=== PATIENT | female | born 1960 | race African-American/Black ===

== ENCOUNTER 2016-10-20 10:15 | Emergency (ER) | payer OTHER ==
[~2016-10-20] VITALS: Ht 157.5 cm; Wt 65.8 kg
[2016-10-20] MEDS ORDERED: Ketorolac 30mg Inj IV ONE (10:45)
[2016-10-20] MEDS ORDERED: Morphine Sulfate 4mg/ml Inj IVP ONE (10:45)
[2016-10-20] MEDS ORDERED: Tubing IV Cassette IV ONE (11:01)
[2016-10-20 11:29] LABS: BASOPHILS % (AUTO) 1.2 % (0.0-2.0); EOSINOPHILS % (AUTO) 0.4 % (0.0-3.0); LYMPHOCYTES % (AUTO) 20.3 % (20.0-45.0); MEAN CORPUSCULAR HEMOGLOBIN 30.3 PG (27.0-31.0); MEAN CORPUSCULAR HGB CONC 34.9 G/DL (32.0-36.0); MEAN CORPUSCULAR VOLUME 87 FL (80-99); MEAN PLATELET VOLUME 6.8 FL (6.5-10.1); MONOCYTES % (AUTO) 5.1 % (1.0-10.0); PLATELET COUNT 364 K/UL (150-450); RED BLOOD COUNT 5.05 M/UL (4.20-5.40); RED CELL DISTRIBUTION WIDTH 13.7 % (11.6-14.8); WHITE BLOOD COUNT 13.9 K/UL (4.8-10.8)
[2016-10-20 11:45] LABS: APPEARANCE,URINE CLEAR; KETONES,URINE NEGATIVE (NEGATIVE); LEUKOCYTE ESTERASE ,URINE NEGATIVE (NEGATIVE); NITRITE,URINE NEGATIVE (NEGATIVE); PH,URINE 6.5 (4.5-8.0); PROTEIN,URINE NEGATIVE (NEGATIVE); UROBILINOGEN,URINE NORMAL MG/DL (0.0-1.0)
[2016-10-20 11:58] LABS: BACTERIA,URINE FEW /HPF; SQUAMOUS EPITHELIAL CELL,UR FEW /LPF (NONE/OCC); WBC,URINE 0-2 /HPF (0 - 2)
[2016-10-20 12:00] VITALS: BP 162/82
[2016-10-20 12:30] LABS: ALANINE AMINOTRANSFERASE 8 U/L (3-33); ALBUMIN/GLOBULIN RATIO 1.3 (1.0-2.7); ANION GAP 15 (5-15); ASPARTATE AMINO TRANSFERASE 14 U/L (5-40); CARBON DIOXIDE 24 mEQ/L (20-30); CHLORIDE 102 mEQ/L (98-107); CREATININE 0.8 mg/dL (0.5-0.9); GLOMERULAR FILTRATION RATE > 60 mL/min (>60); HEMOLYSIS 12; LIPASE 20 U/L (< 60); POTASSIUM 3.5 mEQ/L (3.4-4.9); SODIUM 141 mEQ/L (135-145); TOTAL PROTEIN 6.7 g/dL (6.6-8.7); TROPONIN I < 0.30 ng/mL (<=0.30)
--- NOTE | 2016-10-20 13:20 | Diagnostic Imaging Report ---
Indication: Abdominal pain Technique: Continuous helical transaxial imaging of the abdomen and pelvis was obtained from the lung bases to the pubic symphysis during intravenous contrast administration. Coronal 2-D reformats were also obtained. Study obtained in a Siemens sensation [address] Total Dose length Product (DLP): [address] Dose Index Volume (CTDIvol): 18 mGy Comparison: None Findings: There is mild posterior basilar atelectasis left worse than right. Cholecystectomy is noted. No abnormalities of the spleen identified. There is a 8mm hypervascular focus in the lateral segment of the left lobe nonspecific. This is obvious incidental and could be a small vascular malformation or hypervascular lesion. Bilateral extrarenal pelvis noted. Arterial vascular calcifications are present. No free fluid or free air identified within the abdomen or pelvis. Suggestion of a right-sided uterine fibroid measuring approximately 4-5 cm. Urinary bladder is unremarkable. The appendix is not densely seen but there are no secondary signs of appendicitis. There is a tiny cyst in the left kidney. Impression: No acute findings appreciated. No evidence of appendicitis. Suspected uterine fibroid Posterior basilar atelectasis Incidental 8 mm hypervascular liver focus. This may be a small vascular malformation. Suggest correlation with ultrasound as an outpatient. Status post cholecystectomy. Tiny left renal cyst suspected. The CT scanner at [facility] is accredited by the [employer] and the scans are performed using dose optimization techniques as appropriate to a performed exam including Automatic Exposure control.
[2016-10-20] MEDS ORDERED: HYDROmorphone 1 MG, DiphenhydrAMINE 25 MG in NS 55 ML IVPB ONE (13:45)
[2016-10-20] MEDS ORDERED: HYDROmorphone 1mg/ml Carpuject ONE (13:59)
[2016-10-20 14:00] VITALS: BP_SYST 127; BP_SYST 142; BP_DIAS 85; BP_DIAS 90
[2016-10-20] MEDS ORDERED: NS 55 ML IV ONE (14:00)
[2016-10-20] MEDS ORDERED: DiphenhydrAMINE 50mg/ml Inj ONE (14:00)
--- NOTE | 2016-10-20 15:27 | Emergency Room Report ---
History of Present Illness General Chief Complaint: General Complaint Source: Patient Present Illness HPI 56-year-old female presents to ED complaining of total body pain x3 days. Notes pain in her chest, back, abdomen or legs. Pain is a 10 out of 10, dull, nonradiating. No other aggravating relieving factors. Denies shortness of breath. Denies fevers or chills. Nausea or vomiting. Patient states she feels very weak. Has no appetite. Patient states she was seen at [facility] last week for the same thing and was discharged. Patient states she is getting worse. Patient states she has "polyps" in her colon that she needs to have removed periodically. States she is passing gas. Having bowel movements. No other aggravating or relieving factors. Denies any other associated symptoms Allergies: Coded Allergies: No Known Allergies (Unverified , 10/20/16) Patient History Past Medical History: HTN, psych hx Past Surgical History: none Pertinent Family History: none Social History: Denies: alcohol use, drug use, smoking Now: No Immunizations: UTD Reviewed Nursing Documentation: PMH: Agreed, PSxH: Agreed Nursing Documentation-PMH Hx Cardiac Problems: No Hx Hypertension: Yes Hx Pacemaker: No Hx Asthma: No Hx Diabetes: No Hx Cancer: No Hx Gastrointestinal Problems: No Hx Dialysis: No History Of Psychiatric Problem: Yes - depression Hx Neurological Problems: No Hx Cerebrovascular Accident: No Hx Seizures: No Review of Systems All Other Systems: negative except mentioned in HPI Physical Exam Vital Signs Date Time Temp Pulse Resp B/P Pulse Ox O2 Delivery O2 Flow Rate FiO2 10/20/16 10:02 97.7 78 18 148/94 97 Room Air Sp02 EP Interpretation: reviewed, normal General Appearance: no apparent distress, alert, GCS 15, non-toxic Head: normocephalic, atraumatic Eyes: bilateral eye PERRL, bilateral eye normal inspection ENT: hearing grossly normal, normal pharynx, no angioedema, normal voice Neck: full range of motion, supple/symm/no masses Respiratory: chest non-tender, lungs clear, normal breath sounds, speaking full sentences Cardiovascular #1: regular rate, rhythm, no edema Cardiovascular #2: 2+ carotid (R), 2+ carotid (L), 2+ radial (R), 2+ radial (L) , 2+ dorsalis pedis (R), 2+ dorsalis pedis (L) Gastrointestinal: normal bowel sounds, non tender, soft, non-distended, no guarding, no rebound Rectal: deferred Genitourinary: normal inspection, no CVA tenderness Musculoskeletal: back normal, gait/station normal, normal range of motion, non- tender Neurologic: alert, oriented x3, responsive, motor strength/tone normal, sensory intact, speech normal Psychiatric: judgement/insight normal, memory normal, mood/affect normal, no suicidal/homicidal ideation Reflexes: 3+ bicep (R), 3+ bicep (L), 3+ tricep (R), 3+ tricep (L), 3+ knee (R) , 3+ knee (L) Skin: normal color, no rash, warm/dry, well hydrated Lymphatic: no adenopathy Medical Decision Making Diagnostic Impression: Primary Impression: Weakness Additional Impression: Opioid dependence Qualified Codes: F11.29 - Opioid dependence with unspecified opioid-induced disorder ER Course Hospital Course 56-year-old female presents to ED with generalized body pain, weakness Differential diagnoses include: dehydration, SBO, failure to thrive Clinical course 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 After initial history and physical I ordered labs, IV fluids, UA, pain medication and CT scan Labs - noted leukocytosis, Hb/Hct stable. electrolytes ok CT abdomen and pelvis - no acute process On reassessment patient requires more pain medication. States she feels too weak to go home. Because of insurance patient will be transferred. Records from prior admissions document extensive opioid dependence I feel this is a highly complex case requiring extensive working including EKG/ Rhythm strip, Xray/CT/US, Blood/urine lab work, repeat exams while in ED, and administration of strong opiates/narcotics for pain control, admission to hospital or close patient follow up. Diagnosis - weakness, opioid dependence Transferred in serious condition Labs Test 10/20/16 10:45 10/20/16 10:50 10/20/16 12:10 Urine Color Pale yellow Urine Appearance Clear Urine pH 6.5 (4.5-8.0) Urine Specific [place] 1.005 (1.005-1.035) Urine Protein Negative (NEGATIVE) Urine Glucose (UA) Negative (NEGATIVE) Urine Ketones Negative (NEGATIVE) Urine Occult Blood 2+ (NEGATIVE) Urine Nitrite Negative (NEGATIVE) Urine Bilirubin Negative (NEGATIVE) Urine Urobilinogen Normal MG/DL (0.0-1.0) Urine Leukocyte Esterase Negative (NEGATIVE) Urine RBC 2-4 /HPF (0 - 2) Urine WBC 0-2 /HPF (0 - 2) Urine Squamous Epithelial Cells Few /LPF (NONE/OCC) Urine Bacteria Few /HPF (NONE) White Blood Count 13.9 K/UL (4.8-10.8) Red Blood Count 5.05 M/UL (4.20-5.40) Hemoglobin 15.3 G/DL (12.0-16.0) Hematocrit 43.8 % (37.0-47.0) Mean Corpuscular Volume 87 FL (80-99) Mean Corpuscular Hemoglobin 30.3 PG (27.0-31.0) Mean Corpuscular Hemoglobin Concent 34.9 G/DL (32.0-36.0) Red Cell Distribution Width 13.7 % (11.6-14.8) Platelet Count 364 K/UL (150-450) Mean Platelet Volume 6.8 FL (6.5-10.1) Neutrophils (%) (Auto) 73.0 % (45.0-75.0) Lymphocytes (%) (Auto) 20.3 % (20.0-45.0) Monocytes (%) (Auto) 5.1 % (1.0-10.0) Eosinophils (%) (Auto) 0.4 % (0.0-3.0) Basophils (%) (Auto) 1.2 % (0.0-2.0) Sodium Level 141 mEQ/L (135-145) Potassium Level 3.5 mEQ/L (3.4-4.9) Chloride Level 102 mEQ/L (98-107) Carbon Dioxide Level 24 mEQ/L (20-30) Anion Gap 15 (5-15) Blood Urea Nitrogen 6 mg/dL (7-23) Creatinine 0.8 mg/dL (0.5-0.9) Estimat Glomerular Filtration Rate > 60 mL/min (>60) Glucose Level 88 mg/dL (74-106) Calcium Level 9.0 mg/dL (8.6-10.2) Total Bilirubin 0.4 mg/dL (0.0-1.2) Aspartate Amino Transf (AST/SGOT) 14 U/L (5-40) Alanine Aminotransferase (ALT/SGPT) 8 U/L (3-33) Alkaline Phosphatase 97 U/L (35-104) Troponin I < 0.30 ng/mL (<=0.30) Total Protein 6.7 g/dL (6.6-8.7) Albumin 3.9 g/dL (3.5-5.2) Globulin 2.8 g/dL Albumin/Globulin Ratio 1.3 (1.0-2.7) Lipase 20 U/L (< 60) CT/MRI/US Diagnostic Results CT/MRI/US Diagnostic Results : Imaging Test Ordered: CT A/P Impression no acute process Last Vital Signs Date Time Temp Pulse Resp B/P Pulse Ox O2 Delivery O2 Flow Rate FiO2 10/20/16 14:00 73 16 142/90 95 Room Air 10/20/16 11:35 97.7 Status: improved Disposition: XFER SHT-TRM HOSP Condition: Serious Referrals: [facility],REFERRING (PCP) AG CARY M.D. Oct 20, 2016 15:27
[2016-10-20 16:00] VITALS: BP 151/69
[2016-10-20 16:44] VITALS: BP 151/69
[2016-10-20] MEDS ORDERED: AMLODIPINE BESY10 MG ORAL (16:58)
[2016-10-20] MEDS ORDERED: TRAZODONE HCL150 MG ORAL (16:58)
== END 2016-10-20 17:07 | disposition short-term general hospital (02) ==
LOC: EDBD 10:15 → EMR 10:42
DX: R53.1 Weakness (principal); F11.29 Opioid dependence with unspecified opioid-induced disorder; I10 Essential (primary) hypertension; Z86.010 Personal history of colon polyps; D72.829 Elevated white blood cell count, unspecified
CPT/HCPCS: 36415; 74177; 80053; 81003; 83690; 84484; 85025; 93005; 96360; 96374; 96375; 99285; J1170; J1200; J1885; J2270; J2405; Q9967

== ENCOUNTER 2017-12-31 12:07 | Inpatient (IN) | payer OTHER ==
[~2017-12-31] VITALS: Ht 160 cm; Wt 68.0 kg
[~2017-12-31 12:07] MED LIST: AMLODIPINE BESY10 MG ORAL; TRAZODONE HCL150 MG ORAL
[2017-12-31 12:19] VITALS: BP 135/81
[2017-12-31] MEDS ORDERED: ZOFRAN4 MG ORAL (13:40)
--- NOTE | 2017-12-31 13:40 | Emergency Room Report ---
History of Present Illness General Chief Complaint: Generalized Weakness Source: EMS Present Illness HPI This patient c/o feeling weak and nausea and poor appetite. States she has not eaten for four days b/c of these problems. Pt. had cervical spine fusion surgery September 2017. She takes [place] occasionally when neck/back pain most severe. No vomiting, no fever. No abd pain. Denies dysuria. 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 Allergies: Coded Allergies: No Known Allergies (Unverified , 10/20/16) Patient History Last Menstrual Period: N/A Nursing Documentation-PMH Past Medical History: No History, Except For Hx Cardiac Problems: Yes - IRREGULAR HEARTBEAT Hx Hypertension: Yes Hx Pacemaker: No Hx Asthma: No Hx COPD: Yes Hx Diabetes: No Hx Cancer: No Hx Gastrointestinal Problems: No Hx Dialysis: No History Of Psychiatric Problem: Yes - BIPOLAR, DEPRESSION Hx Neurological Problems: No Hx Cerebrovascular Accident: No Hx Seizures: No Review of Systems Constitutional: Reports: no symptoms, malaise, weakness Eye: Reports: no symptoms ENT: Reports: no symptoms Respiratory: Reports: no symptoms Cardiovascular: Reports: no symptoms Gastrointestinal: Reports: no symptoms, nausea Genitourinary: Reports: no symptoms Musculoskeletal: Reports: no symptoms Skin: Reports: no symptoms Psychiatric: Reports: no symptoms Neurological: Reports: no symptoms Endocrine: Reports: no symptoms Hematologic/Lymphatic: Reports: no symptoms Allergic: Reports: no symptoms Physical Exam Vital Signs Date Time Temp Pulse Resp B/P (MAP) Pulse Ox O2 Delivery O2 Flow Rate FiO2 12/31/17 12:09 98.7 75 20 149/93 98 Room Air 98.8 Sp02 EP Interpretation: reviewed, normal General Appearance: normal inspection, well appearing, no apparent distress, alert, GCS 15, non-toxic Head: normocephalic, atraumatic Eyes: bilateral eye normal inspection, bilateral eye PERRL, bilateral eye EOMI ENT: hearing grossly normal, normal pharynx, no angioedema, normal voice, dry mucus membranes Neck: other - soft collar Respiratory: normal inspection, lungs clear, normal breath sounds, no rhonchi, no respiratory distress, no retraction, no accessory muscle use, no wheezing Cardiovascular #1: normal inspection, regular rate, rhythm, no edema Gastrointestinal: normal inspection, normal bowel sounds, non tender, soft, no mass, non-distended Musculoskeletal: gait/station normal, normal range of motion Neurologic: normal inspection, alert, oriented x3, responsive, motor strength/ tone normal Psychiatric: normal inspection, judgement/insight normal, memory normal Suicide Risk Assessment: Suicidal Ideation: No Had intent to initiate attempt: No Pt's plan for suicide attempt: No Has means to complete attempt: No Skin: normal inspection, normal color, no rash, warm/dry Medical Decision Making Diagnostic Impression: Primary Impression: Nausea Additional Impressions: Episode of generalized weakness Dehydration UTI (urinary tract infection) ER Course This patient is fairly reliable. She is so uncomfortable she is not eating/ drinking. She also has a mild UTI on UA. Agree admit for IV fluids, pain, nausea control. PMD will check labs that are still pending. Rhythm Strip Diag. Results Rhythm Strip Time: 14:49 EP Interpretation: yes Rhythm: NSR Last Vital Signs Date Time Temp Pulse Resp B/P (MAP) Pulse Ox O2 Delivery O2 Flow Rate FiO2 12/31/17 12:19 98.4 72 15 135/81 99 Room Air 98.4 Disposition: ADMITTED INPATIENT Condition: Stable Scripts Ondansetron (Zofran) 4 Mg Tablet 4 MG ORAL Q6H PRN for Nausea & Vomiting, #30 TAB 0 Refills Prov: Sandro Faustin M.D. 12/31/17 Referrals: NOT CHOSEN [facility]/,REFERRING (PCP) Patient Instructions: Nausea and Vomiting, Adult, [id number] Sandro Faustin M.D. Dec 31, 2017 13:40
[2017-12-31 13:48] LABS: BASOPHILS % (AUTO) 0.5 % (0.0-2.0); EOSINOPHILS % (AUTO) 0.3 % (0.0-3.0); HEMATOCRIT 35.2 % (37.0-47.0); HEMOGLOBIN 11.9 G/DL (12.0-16.0); LYMPHOCYTES % (AUTO) 23.8 % (20.0-45.0); MEAN CORPUSCULAR VOLUME 86 FL (80-99); MONOCYTES % (AUTO) 4.4 % (1.0-10.0); NEUTROPHILS % (AUTO) 71.1 % (45.0-75.0); PLATELET COUNT 216 K/UL (150-450); RED BLOOD COUNT 4.11 M/UL (4.20-5.40); WHITE BLOOD COUNT 8.9 K/UL (4.8-10.8)
[2017-12-31 14:08] LABS: APPEARANCE,URINE CLEAR; BILIRUBIN, URINE NEGATIVE (NEGATIVE); GLUCOSE, URINE (UA) NEGATIVE (NEGATIVE); KETONES,URINE 3+ (NEGATIVE); LEUKOCYTE ESTERASE ,URINE 1+ (NEGATIVE); NITRITE,URINE NEGATIVE (NEGATIVE); PH,URINE 6 (4.5-8.0); PROTEIN,URINE 2+ (NEGATIVE); UROBILINOGEN,URINE NORMAL MG/DL (0.0-1.0)
[2017-12-31 14:21] LABS: COLOR,URINE YELLOW
[2017-12-31 14:43] LABS: ANION GAP 9 mmol/L (5-15); BLOOD UREA NITROGEN 9 mg/dL (7-18); CALCIUM 9.3 MG/DL (8.5-10.1); CARBON DIOXIDE 27 MMOL/L (21-32); CHLORIDE 101 MMOL/L (98-107); CREATININE 0.8 MG/DL (0.55-1.30); POTASSIUM 3.9 MMOL/L (3.5-5.1); SODIUM 137 MMOL/L (136-145)
[2017-12-31 14:46] VITALS: BP 137/80
[2017-12-31 14:48] LABS: ALANINE AMINOTRANSFERASE 23 U/L (12-78); ALBUMIN/GLOBULIN RATIO 1.2 (1.0-2.7); ALKALINE PHOSPHATASE 99 U/L (46-116); ASPARTATE AMINO TRANSFERASE 24 U/L (15-37); BILIRUBIN,TOTAL 0.6 MG/DL (0.2-1.0)
[2017-12-31] MEDS ORDERED: Morphine Sulfate 2mg/ml Inj(IV/IM USE ONLY) IVP ONE (15:00)
[2017-12-31] MEDS ORDERED: Ketorolac 30mg Inj IV ONE (15:00)
[2017-12-31] MEDS ORDERED: cefTRIAXone 1 GM in NS 55 ML IVPB ONE (15:45)
[2017-12-31 16:33] VITALS: BP 133/73
[2017-12-31] MEDS ORDERED: BENADRYL25 MG ORAL (17:43)
[2017-12-31] MEDS ORDERED: BUPROPION XL150 MG ORAL (17:43)
[2017-12-31] MEDS ORDERED: SEROQUEL100 MG ORAL (17:43)
[2017-12-31] MEDS ORDERED: Morphine Sulfate 4mg/ml Inj (IV USE ONLY) IVP ONE (17:45)
[2017-12-31 18:51] VITALS: BP 154/76
[2017-12-31 19:30] VITALS: BP 131/87
[2017-12-31 21:33] VITALS: BP_SYST 131; BP_SYST 140; BP_DIAS 74; BP_DIAS 87
[2017-12-31] MEDS ORDERED: Morphine Sulfate 4mg/ml Inj (IV USE ONLY) ONE (21:57)
[2017-12-31] MEDS ORDERED: Morphine Sulfate 4mg/ml Inj (IV USE ONLY) IVP STA (21:59)
[2017-12-31] MEDS ORDERED: Morphine Sulfate 4mg/ml Inj (IV USE ONLY) IVP PRN ×2 (22:15→23:30)
[2017-12-31] MEDS ORDERED: BuPROPion XL 150mg tab ORAL SCH (23:30)
[2017-12-31] MEDS ORDERED: Acetaminophen 500mg (ES) tab ORAL PRN (23:45)
[2018-01-01] VITALS: BP 142/76
[2018-01-01] MEDS: Morphine Sulfate 4mg/ml Inj (IV USE ONLY) IVP PRN ×5 (01:48→19:58)
[2018-01-01] MEDS ORDERED: Morphine Sulfate 4mg/ml Inj (IV USE ONLY) IVP PRN (03:30)
[2018-01-01] MEDS ORDERED: TraZODone 100mg tab ORAL ONE (03:30)
[2018-01-01 04:00] VITALS: BP 141/80
[2018-01-01 07:22] VITALS: BP 117/76
[2018-01-01] MEDS: BuPROPion XL 150mg tab ORAL SCH (08:33)
--- NOTE | 2018-01-01 10:05 | Diagnostic Imaging Report ---
Indication: Neck pain Technique: 3 views of the cervical spine Comparison: none Findings: Exam is somewhat limited as patient was unable to tolerate elevating arms for swimmer's view. The lower cervical spine and cervicothoracic junction are not well demonstrated. There is slight reversal of the normal cervical lordosis. Anterior fusion hardware is seen bridging C4-5 and C6-7, with disc spacers at all of the intervening discs. No definite acute fractures. No dislocations. No prevertebral soft tissue swelling. Impression: Very limited exam. No gross acute bony trauma
--- NOTE | 2018-01-01 10:22 | Consultation ---
History of Present Illness General Date patient seen: Jan 01, 2018 Present Illness Allergies: Coded Allergies: No Known Allergies (Unverified , 10/20/16) Medication History Scheduled Amlodipine Besylate* (Amlodipine Besylate*), 10 MG ORAL DAILY, (Reported) Bupropion Xl* (Bupropion Xl*), 150 MG ORAL Q24H, (Reported) Quetiapine Fumarate* (Seroquel*), 100 MG ORAL TWICE A DAY, (Reported) Trazodone* (Trazodone*), 100 MG ORAL BEDTIME, (Reported) Scheduled PRN Diphenhydramine Hcl* (Benadryl*), 25 MG ORAL Q6H PRN for Itching, (Reported) Discontinued Medications Ondansetron (Zofran), 4 MG ORAL Q6H PRN for Nausea & Vomiting Discontinued Reason: Pt stopped taking med Patient History Healthcare decision maker N Resuscitation status Advanced Directive on File Physical Exam Last 24 Hour Vital Signs Date Time Temp Pulse Resp B/P (MAP) Pulse Ox O2 Delivery O2 Flow Rate FiO2 01/01/18 08:59 Room Air 01/01/18 08:34 78 117/76 01/01/18 07:22 98.1 78 18 117/76 (90) 97 98.1 01/01/18 04:00 98.0 68 18 141/80 (100) 99 98.0 01/01/18 00:00 98.2 56 20 142/76 (98) 98 98.2 12/31/17 23:23 Room Air 12/31/17 22:45 98.7 51 18 140/74 100 Room Air 209.7 12/31/17 22:01 98.7 12/31/17 21:33 98.7 51 18 140/74 100 Room Air 98.7 12/31/17 19:30 98.7 67 18 131/87 100 Room Air 98.7 12/31/17 18:51 98.7 52 17 154/76 100 Room Air 98.7 12/31/17 17:39 98.8 12/31/17 16:33 98.8 55 22 133/73 100 Room Air 98.8 12/31/17 15:33 98.8 12/31/17 15:28 98.8 12/31/17 15:03 98.6 8/16/18 14:46 98.6 71 21 137/80 100 Room Air 98.6 12/31/17 12:19 98.4 72 15 135/81 99 Room Air 98.4 12/31/17 12:09 98.7 75 20 149/93 98 Room Air 98.8 Intake and Output 12/31/17 01/01/18 19:00 07:00 Intake Total 120 ml Output Total 0 ml Balance 0 ml 120 ml Intake Oral 120 ml Output Urine Total 0 ml # Voids 3 Laboratory Tests Test 12/31/17 13:30 12/31/17 13:49 White Blood Count 8.9 K/UL (4.8-10.8) Red Blood Count 4.11 M/UL (4.20-5.40) L Hemoglobin 11.9 G/DL (12.0-16.0) L Hematocrit 35.2 % (37.0-47.0) L Mean Corpuscular Volume 86 FL (80-99) Mean Corpuscular Hemoglobin 28.9 PG (27.0-31.0) Mean Corpuscular Hemoglobin Concent 33.8 G/DL (32.0-36.0) Red Cell Distribution Width 13.0 % (11.6-14.8) Platelet Count 216 K/UL (150-450) Mean Platelet Volume 6.3 FL (6.5-10.1) L Neutrophils (%) (Auto) 71.1 % (45.0-75.0) Lymphocytes (%) (Auto) 23.8 % (20.0-45.0) Monocytes (%) (Auto) 4.4 % (1.0-10.0) Eosinophils (%) (Auto) 0.3 % (0.0-3.0) Basophils (%) (Auto) 0.5 % (0.0-2.0) Sodium Level 137 MMOL/L (136-145) Potassium Level 3.9 MMOL/L (3.5-5.1) Chloride Level 101 MMOL/L (98-107) Carbon Dioxide Level 27 MMOL/L (21-32) Anion Gap 9 mmol/L (5-15) Blood Urea Nitrogen 9 mg/dL (7-18) Creatinine 0.8 MG/DL (0.55-1.30) Estimat Glomerular Filtration Rate > 60 mL/min (>60) Glucose Level 106 MG/DL (74-106) Calcium Level 9.3 MG/DL (8.5-10.1) Total Bilirubin 0.6 MG/DL (0.2-1.0) Aspartate Amino Transf (AST/SGOT) 24 U/L (15-37) Alanine Aminotransferase (ALT/SGPT) 23 U/L (12-78) Alkaline Phosphatase 99 U/L (46-116) Total Protein 7.3 G/DL (6.4-8.2) Albumin 4.0 G/DL (3.4-5.0) Globulin 3.3 g/dL Albumin/Globulin Ratio 1.2 (1.0-2.7) Lipase 70 U/L (73-393) L Urine Color Yellow Urine Appearance Clear Urine pH 6 (4.5-8.0) Urine Specific [place] 1.020 (1.005-1.035) Urine Protein 2+ (NEGATIVE) H Urine Glucose (UA) Negative (NEGATIVE) Urine Ketones 3+ (NEGATIVE) H Urine Occult Blood 3+ (NEGATIVE) H Urine Nitrite Negative (NEGATIVE) Urine Bilirubin Negative (NEGATIVE) Urine Urobilinogen Normal MG/DL (0.0-1.0) Urine Leukocyte Esterase 1+ (NEGATIVE) H Urine RBC 5-10 /HPF (0 - 2) H Urine WBC 5-10 /HPF (0 - 2) H Urine Squamous Epithelial Cells Few /LPF (NONE/OCC) Urine Bacteria Few /HPF (NONE) Urine Mucus Few /LPF (NONE/OCC) H Urine Opiates Screen Positive (NEGATIVE) H Urine Barbiturates Screen Negative (NEGATIVE) Phencyclidine (PCP) Screen Negative (NEGATIVE) Urine Amphetamines Screen Negative (NEGATIVE) Urine Benzodiazepines Screen Positive (NEGATIVE) H Urine Cocaine Screen Negative (NEGATIVE) Urine Marijuana (THC) Screen Negative (NEGATIVE) Height (Feet): 5 Height (Inches): 3.00 Weight (Pounds): 150 Medications Current Medications Medications (Trade) Dose Ordered Sig/Zaina Route PRN Reason Start Time Stop Time Status Last Admin Dose Admin Acetaminophen (Tylenol) 500 mg Q4H PRN ORAL Mild Pain/Temp > 100.5 12/31/17 23:45 01/30/18 23:44 Amlodipine Besylate (Norvasc) 10 mg DAILY ORAL 01/01/18 09:00 01/31/18 08:59 Bupropion HCl (Wellbutrin XL) 150 mg Q24H ORAL 01/01/18 09:00 01/30/18 23:29 01/01/18 08:33 Diphenhydramine HCl (Benadryl) 25 mg Q4H PRN ORAL Itching 12/31/17 23:30 01/30/18 23:29 01/01/18 00:16 Morphine Sulfate (Morphine Sulfate) 4 mg Q4H PRN IVP Severe Pain (Pain Scale 7-10) 01/01/18 01:00 01/07/18 23:29 01/01/18 06:59 Ondansetron HCl (Zofran) 4 mg Q6H PRN IVP Nausea & Vomiting 12/31/17 23:30 01/30/18 23:29 12/31/17 23:59 Quetiapine Fumarate (SEROquel) 50 mg TWICE A DAY ORAL 01/01/18 09:00 01/31/18 08:59 Trazodone HCl (Desyrel) 100 mg BEDTIME ORAL 01/01/18 21:00 01/31/18 20:59 Assessment/Plan Assessment/Plan (1) Cervical DDD (2) Cervical Spondylosis (3) Cervical Herniated disc (4) Cervical Radiculopathy (5) S/P Cervical Fusion seen dictated Jose M Bucio Jan 01, 2018 10:22
[2018-01-01 10:53] LABS: BASOPHILS % (AUTO) 1.1 % (0.0-2.0); EOSINOPHILS % (AUTO) 1.9 % (0.0-3.0); HEMATOCRIT 38.9 % (37.0-47.0); HEMOGLOBIN 13.3 G/DL (12.0-16.0); LYMPHOCYTES % (AUTO) 35.2 % (20.0-45.0); MEAN CORPUSCULAR VOLUME 86 FL (80-99); MONOCYTES % (AUTO) 6.8 % (1.0-10.0); NEUTROPHILS % (AUTO) 55.1 % (45.0-75.0); PLATELET COUNT 258 K/UL (150-450); RED BLOOD COUNT 4.52 M/UL (4.20-5.40); RED CELL DISTRIBUTION WIDTH 13.5 % (11.6-14.8); WHITE BLOOD COUNT 10.5 K/UL (4.8-10.8)
[2018-01-01 11:19] LABS: ALANINE AMINOTRANSFERASE 17 U/L (12-78); ALBUMIN 3.1 G/DL (3.4-5.0); ALKALINE PHOSPHATASE 101 U/L (46-116); ANION GAP 6 mmol/L (5-15); ASPARTATE AMINO TRANSFERASE 15 U/L (15-37); BILIRUBIN,TOTAL 0.3 MG/DL (0.2-1.0); BLOOD UREA NITROGEN 17 mg/dL (7-18); CALCIUM 8.7 MG/DL (8.5-10.1); CARBON DIOXIDE 31 MMOL/L (21-32); CHLORIDE 106 MMOL/L (98-107); CREATININE 1.2 MG/DL (0.55-1.30); POTASSIUM 3.8 MMOL/L (3.5-5.1); SODIUM 143 MMOL/L (136-145)
[2018-01-01 11:33] VITALS: BP 107/71
[2018-01-01] MEDS ORDERED: Methocarbamol 500mg tab ORAL PRN (12:00)
[2018-01-01 16:00] VITALS: BP 99/48
[2018-01-01 20:00] VITALS: BP 110/53
--- NOTE | 2018-01-01 20:00 | History and Physical Report ---
DATE OF ADMISSION: 12/31/2017 HISTORY OF PRESENT ILLNESS: The patient admitted for intractable pain, dehydration, urinary tract infection. The patient has a soft collar on the neck, has recent surgery on her neck for what she describes as left hand lock up. She says that the left hand lock up improved after her neck surgery. The patient had multiple neck surgeries and she also says that yesterday she had a syncopal episode while walking and remembers what happened up to passing out but after the passing out she does not remember how long she was out. She has chronic neck and back pain syndrome which is chronic. Denies headache. Denies shortness of breath. Denies cough. Denies fever or chills. The patient states she has been not eating for four days and also had a chest wall tenderness which made worse by deep inspiration. PAST MEDICAL HISTORY: Significant for hypertension, anxiety, psychosis, mood disorder, chronic pain syndrome, history of the left hand locking up/paresis, history of arrhythmia. The patient also has history of hypertension as well and history of polyps as well. The patient also has history of dislocated lumbar in the past, it is not acute. PAST SURGICAL HISTORY: Polypectomy, right arm surgery, cholecystectomy, multiple neck surgeries. The patient also has history of right lower extremity surgery, history of x2, tumor removed from right shoulder as well. FAMILY HISTORY: Noncontributory. SOCIAL HISTORY: History of drug abuse, history of smoking. Very remote history of alcohol abuse. REVIEW OF SYSTEMS: HEENT: Denies headaches. RESPIRATORY: Denies shortness of breath. Denies cough. CARDIOVASCULAR: Denies chest pain. Denies orthopnea. GASTROINTESTINAL: Denies nausea, vomiting, or diarrhea. Does have occasional heartburn. EXTREMITIES: She has generalized pain, which is chronic including neck pain. CENTRAL NERVOUS SYSTEM: Denies change in vision or speech pattern. Had syncopal episode yesterday. No diplopia. PHYSICAL EXAMINATION: VITAL SIGNS: Temperature is 98.2, pulse 56, blood pressure is 142/72. HEENT: PERRLA. The patient is wearing soft collar and neck collar. CHEST: Clear to auscultation. CARDIOVASCULAR: Regular. Does have murmur. GASTROINTESTINAL: Soft and nontender. Positive bowel sounds. No organomegaly. EXTREMITIES: No edema. There is generalized weakness. Wearing soft neck collar. Reflexes equal on both sides. LABORATORY DATA: WBC of 8.9, hemoglobin 11.9, platelet basically 216. Sodium 137, potassium 3.9, chloride 101, BUN of 9, creatinine 0.8. AST of 24, ALT of 23, alkaline phosphatase of 99. Lipase of 70. ASSESSMENT AND PLAN: The patient does seem to have urinary tract infection 1. Urinary tract infection. 2. Intractable neck pain. 3. psychosis. I have asked Dr. Karolina Dr. , Dr. Landaverde, Dr. Cordoba to see the patient for the pain management as well as for the treatment of urinary tract infection as well as for her psychosis and depression as well as for abdominal pain management. The patient does complain of some abdominal pain as well. Sheyla Lawrence M.D. DR: Alejandra JOB#: [id number] CC:
--- NOTE | 2018-01-01 20:15 | Consultation ---
DATE OF CONSULTATION: 01/01/2018 PAIN MANAGEMENT CONSULTATION CONSULTING PHYSICIAN: Etta Landaverde M.D. REFERRING PHYSICIAN: Sheyla Lawrence M.D. PHYSICIAN OBSTETRICS AND GYNECOLOGY PROFESSOR: Valeria Luis CHIEF COMPLAINT: Neck pain. HISTORY OF PRESENT ILLNESS: The patient is a 57-year-old female who is being seen on the Medical/Surgical floor of [facility] for comprehensive pain management consultation. The patient was admitted under the care of Dr. Lawrence due to complaints of increased weakness, complaining of neck pain, which had a surgery of cervical spine fusion on September of [address] Owens at [facility]. She was having increased weakness, poor appetite, and some nausea, and was admitted to the hospital under the care of Dr. Lawrence, who started her on morphine 4 mg IV every 4 hours as needed for severe pain, which has been helping to relieve her pain. We were consulted so that the patient would have adequate pain control while here in the hospital. PAST MEDICAL HISTORY: Hypertension and bipolar disorder. PAST SURGICAL HISTORY: Cervical fusion. ALLERGIES: No known drug allergies. MEDICATIONS: Amlodipine, , Seroquel, trazodone, Benadryl, Zofran, and [place]. SOCIAL HISTORY: Denies smoking tobacco, drinking alcohol, and IV drug abuse. REVIEW OF SYSTEMS: Denies rash, fever, chills, sweating, dizziness, drowsiness, blurred vision, sore throat, or change in weight. No shortness of breath or chest pain. No nausea, vomiting, diarrhea, or blood in the stool or urine. No bowel or bladder incontinence. No dysuria. She is complaining of neck pain. PHYSICAL EXAMINATION: GENERAL: Alert, awake, and oriented x3. VITAL SIGNS: Blood pressure 117/76, heart rate 78, oxygen saturation 97%, respiratory rate is 18, and temperature 98.1 degrees Fahrenheit. HEENT: PERRLA. NECK: Range of motion is decreased due to the patient's condition with tenderness to paracervical muscles. No adenopathy. LUNGS: Decreased breath sounds bilaterally. HEART: Regular. ABDOMEN: Benign. BACK: Range of motion is decreased in flexion and extension. EXTREMITIES: Upper extremity range of motion is decreased due to the patient's pain and condition. No cyanosis. No clubbing. No edema. Joint contractures noted in the right upper extremity. Sensory is reduced. Reflexes are not obtainable. No adenopathy. Lower extremity range of motion is decreased due to the patient's pain and condition. No cyanosis. No clubbing. Sensory is intact. Reflexes are not obtainable. No adenopathy. ASSESSMENT AND PLAN: This is a 57-year-old female with cervical degenerative disk disease, cervical spondylosis, cervical herniated disc, cervical radiculopathy, status post cervical fusion. The patient will be continued on morphine 4 mg IV every 4 hours as needed for severe pain, started on Tylenol No. 3 one tablet every 4 hours as needed for moderate pain, Neurontin 300 mg capsule three times a day with Robaxin 500 mg tablet every 8 hours as needed for muscle spasm. The patient was discussed with Dr. Landaverde and Dr. Landaverde concurred. We will follow the patient. Thank you very much for the courtesy of this consultation. Etta Landaverde M.D. EMILIANA Luis DR: Norah JOB#: [id number] CC:
[2018-01-01] MEDS: TraZODone 100mg tab ORAL SCH (20:59)
--- NOTE | 2018-01-01 23:59 | Consultation ---
History of Present Illness General Date patient seen: Jan 01, 2018 Chief Complaint: Generalized Weakness Present Illness HPI 57-year-old female who was admitted due to complaints of increased weakness, neck pain, which had a surgery of cervical spine fusion on September of [address] Owens at [facility]. She was having increased weakness, poor appetite , and some nausea, depressed mood amd nausea/ Allergies: Coded Allergies: No Known Allergies (Unverified , 10/20/16) Medication History Scheduled Amlodipine Besylate* (Amlodipine Besylate*), 10 MG ORAL DAILY, (Reported) Bupropion Xl* (Bupropion Xl*), 150 MG ORAL Q24H, (Reported) Quetiapine Fumarate* (Seroquel*), 100 MG ORAL TWICE A DAY, (Reported) Trazodone* (Trazodone*), 100 MG ORAL BEDTIME, (Reported) Scheduled PRN Diphenhydramine Hcl* (Benadryl*), 25 MG ORAL Q6H PRN for Itching, (Reported) Discontinued Medications Ondansetron (Zofran), 4 MG ORAL Q6H PRN for Nausea & Vomiting Discontinued Reason: Pt stopped taking med Patient History Limited by: medical condition History Provided By: Patient, Medical Record, PMD Healthcare decision maker N Resuscitation status Advanced Directive on File Past Medical/Surgical History Past Medical/Surgical History: (1) Episode of generalized weakness (2) Nausea (3) Dehydration (4) UTI (urinary tract infection) Review of Systems Psychiatric: Reports: prior hx, anxiety, depressed feelings, emotional problems Physical Exam General Appearance: no apparent distress, alert Neurologic: depressed affect Last 24 Hour Vital Signs Date Time Temp Pulse Resp B/P (MAP) Pulse Ox O2 Delivery O2 Flow Rate FiO2 01/01/18 21:00 Room Air 01/01/18 20:00 98.1 63 18 110/53 (72) 95 98.1 01/01/18 16:00 98.4 67 20 99/48 (65) 94 98.4 01/01/18 11:33 98.2 68 16 107/71 (83) 96 98.2 01/01/18 08:59 Room Air 01/01/18 08:34 78 117/76 01/01/18 07:22 98.1 78 18 117/76 (90) 97 98.1 01/01/18 04:00 98.0 68 18 141/80 (100) 99 98.0 01/01/18 00:00 98.2 56 20 142/76 (98) 98 98.2 Intake and Output 12/31/17 01/01/18 19:00 07:00 Intake Total 120 ml Output Total 0 ml Balance 0 ml 120 ml Intake Oral 120 ml Output Urine Total 0 ml # Voids 3 Laboratory Tests Test 01/01/18 10:30 White Blood Count 10.5 K/UL (4.8-10.8) Red Blood Count 4.52 M/UL (4.20-5.40) Hemoglobin 13.3 G/DL (12.0-16.0) Hematocrit 38.9 % (37.0-47.0) Mean Corpuscular Volume 86 FL (80-99) Mean Corpuscular Hemoglobin 29.4 PG (27.0-31.0) Mean Corpuscular Hemoglobin Concent 34.1 G/DL (32.0-36.0) Red Cell Distribution Width 13.5 % (11.6-14.8) Platelet Count 258 K/UL (150-450) Mean Platelet Volume 6.9 FL (6.5-10.1) Neutrophils (%) (Auto) 55.1 % (45.0-75.0) Lymphocytes (%) (Auto) 35.2 % (20.0-45.0) Monocytes (%) (Auto) 6.8 % (1.0-10.0) Eosinophils (%) (Auto) 1.9 % (0.0-3.0) Basophils (%) (Auto) 1.1 % (0.0-2.0) Sodium Level 143 MMOL/L (136-145) Potassium Level 3.8 MMOL/L (3.5-5.1) Chloride Level 106 MMOL/L (98-107) Carbon Dioxide Level 31 MMOL/L (21-32) Anion Gap 6 mmol/L (5-15) Blood Urea Nitrogen 17 mg/dL (7-18) Creatinine 1.2 MG/DL (0.55-1.30) Estimat Glomerular Filtration Rate 56.0 mL/min (>60) Glucose Level 132 MG/DL (74-106) H Calcium Level 8.7 MG/DL (8.5-10.1) Total Bilirubin 0.3 MG/DL (0.2-1.0) Aspartate Amino Transf (AST/SGOT) 15 U/L (15-37) Alanine Aminotransferase (ALT/SGPT) 17 U/L (12-78) Alkaline Phosphatase 101 U/L (46-116) Total Protein 6.1 G/DL (6.4-8.2) L Albumin 3.1 G/DL (3.4-5.0) L Globulin 3.0 g/dL Albumin/Globulin Ratio 1.0 (1.0-2.7) Height (Feet): 5 Height (Inches): 3.00 Weight (Pounds): 150 Medications Current Medications Medications (Trade) Dose Ordered Sig/Zaina Route PRN Reason Start Time Stop Time Status Last Admin Dose Admin Acetaminophen (Tylenol) 500 mg Q4H PRN ORAL Mild Pain/Temp > 100.5 12/31/17 23:45 01/30/18 23:44 Acetaminophen/ Codeine Phosphate (Tylenol #3) 1 tab Q4H PRN ORAL Moderate Pain (Pain Scale 4-6) 01/01/18 11:00 01/08/18 10:59 Amlodipine Besylate (Norvasc) 10 mg DAILY ORAL 01/01/18 09:00 01/31/18 08:59 Bupropion HCl (Wellbutrin XL) 150 mg Q24H ORAL 01/01/18 09:00 01/30/18 23:29 01/01/18 08:33 Diphenhydramine HCl (Benadryl) 25 mg Q4H PRN ORAL Itching 12/31/17 23:30 01/30/18 23:29 01/01/18 00:16 Gabapentin (Neurontin) 300 mg THREE TIMES A DAY ORAL 01/01/18 13:00 01/31/18 12:59 01/01/18 17:38 Methocarbamol (Robaxin) 500 mg Q8H PRN ORAL muscle spasm 01/01/18 12:00 01/31/18 11:59 Morphine Sulfate (Morphine Sulfate) 4 mg Q4H PRN IVP Severe Pain (Pain Scale 7-10) 01/01/18 01:00 01/07/18 23:29 01/01/18 19:58 Ondansetron HCl (Zofran) 4 mg Q6H PRN IVP Nausea & Vomiting 12/31/17 23:30 01/30/18 23:29 01/01/18 11:19 Quetiapine Fumarate (SEROquel) 50 mg TWICE A DAY ORAL 01/01/18 09:00 01/31/18 08:59 01/01/18 17:38 Trazodone HCl (Desyrel) 100 mg BEDTIME ORAL 01/01/18 21:00 01/31/18 20:59 01/01/18 20:59 Assessment/Plan Assessment/Plan mdd cont current meds Lupe Turcios MD Jan 01, 2018 23:59
[2018-01-02] VITALS: BP 97/47
[2018-01-02] MEDS: Morphine Sulfate 4mg/ml Inj (IV USE ONLY) IVP PRN ×6 (00:56→23:41)
[2018-01-02 04:00] VITALS: BP 102/60
[2018-01-02 07:58] VITALS: BP 102/65
[2018-01-02] MEDS: BuPROPion XL 150mg tab ORAL SCH (09:03)
[2018-01-02] MEDS: Tylenol #3 tab (300mg/30mg) ORAL PRN (09:19)
[2018-01-02 12:00] VITALS: BP 104/64
[2018-01-02 16:00] VITALS: BP 111/66
--- NOTE | 2018-01-02 17:36 | General Progress Note ---
Assessment/Plan Problem List: (1) Nausea ICD Codes: R11.0 - Nausea SNOMED: 784292951 (2) Dehydration ICD Codes: E86.0 - Dehydration SNOMED: 95448121 Status: progressing Assessment/Plan dehydration is improving no nausea afebrile vitals stable Subjective ROS Limited/Unobtainable: Yes Allergies: Coded Allergies: No Known Allergies (Unverified , 10/20/16) Objective Last 24 Hour Vital Signs Date Time Temp Pulse Resp B/P (MAP) Pulse Ox O2 Delivery O2 Flow Rate FiO2 01/02/18 16:00 98.1 68 18 111/66 (81) 94 98.1 01/02/18 12:00 98.4 62 18 104/64 (77) 96 98.4 01/02/18 09:19 98.0 01/02/18 09:03 65 102/65 01/02/18 08:02 Room Air 01/02/18 07:58 98.0 65 18 102/65 (77) 96 98.0 01/02/18 04:00 98.2 65 18 102/60 (74) 96 98.2 01/02/18 00:00 98.0 70 18 97/47 (64) 94 98.0 01/01/18 21:00 Room Air 01/01/18 20:00 98.1 63 18 110/53 (72) 95 98.1 Intake and Output 01/01/18 01/02/18 19:00 07:00 Intake Total 1000 ml 500 ml Balance 1000 ml 500 ml Intake Oral 1000 ml 500 ml # Voids 3 3 Height (Feet): 5 Height (Inches): 3.00 Weight (Pounds): 150 Cardiovascular: normal rate Respiratory/Chest: lungs clear Abdomen: soft Sheyla Lawrence MD Jan 02, 2018 17:36
[2018-01-02 20:00] VITALS: BP 116/72
[2018-01-02] MEDS: TraZODone 100mg tab ORAL SCH (21:56)
[2018-01-03] VITALS: BP 109/50
[2018-01-03] MEDS: Morphine Sulfate 4mg/ml Inj (IV USE ONLY) IVP PRN ×5 (03:50→20:34)
[2018-01-03 04:00] VITALS: BP 123/78
[2018-01-03 08:00] VITALS: BP 111/73
[2018-01-03] MEDS: BuPROPion XL 150mg tab ORAL SCH (09:10)
[2018-01-03] MEDS: Tylenol #3 tab (300mg/30mg) ORAL PRN (10:10)
[2018-01-03 12:00] VITALS: BP 141/96
--- NOTE | 2018-01-03 14:54 | General Progress Note ---
Assessment/Plan Problem List: (1) Nausea ICD Codes: R11.0 - Nausea SNOMED: 083344370 (2) Dehydration ICD Codes: E86.0 - Dehydration SNOMED: 79113835 Status: progressing Assessment/Plan dehydration is improved no cp dc in am vitals good Subjective Allergies: Coded Allergies: No Known Allergies (Unverified , 10/20/16) Subjective chronic pain Objective Last 24 Hour Vital Signs Date Time Temp Pulse Resp B/P (MAP) Pulse Ox O2 Delivery O2 Flow Rate FiO2 01/03/18 13:02 97.9 01/03/18 12:32 97.9 01/03/18 12:00 97.9 67 21 141/96 (111) 95 97.9 01/03/18 11:09 97.9 01/03/18 10:10 97.9 01/03/18 09:10 71 111/73 01/03/18 08:26 97.9 01/03/18 08:00 97.9 71 20 111/73 (86) 95 97.9 01/03/18 08:00 Room Air 01/03/18 04:00 97.9 66 20 123/78 (93) 94 97.9 01/03/18 00:00 97.9 70 18 109/50 (69) 94 97.9 01/02/18 21:00 Room Air 01/02/18 20:00 98.2 66 18 116/72 (87) 94 98.2 01/02/18 16:00 98.1 68 18 111/66 (81) 94 98.1 Intake and Output 01/02/18 01/03/18 19:00 07:00 Intake Total 750 ml 240 ml Balance 750 ml 240 ml Intake Oral 750 ml 240 ml # Voids 2 3 Height (Feet): 5 Height (Inches): 3.00 Weight (Pounds): 150 Cardiovascular: normal rate Respiratory/Chest: lungs clear Abdomen: soft Sheyla Lawrence MD Jan 03, 2018 14:54
[2018-01-03 16:00] VITALS: BP 136/76
[2018-01-03 20:08] VITALS: BP 120/74
[2018-01-03] MEDS: TraZODone 100mg tab ORAL SCH (20:32)
[2018-01-04 00:30] VITALS: BP 119/76
[2018-01-04] MEDS: Morphine Sulfate 4mg/ml Inj (IV USE ONLY) IVP PRN ×4 (00:57→13:46)
[2018-01-04 04:00] VITALS: BP 134/82
[2018-01-04 08:00] VITALS: BP 138/81
[2018-01-04] MEDS: BuPROPion XL 150mg tab ORAL SCH (09:00)
[2018-01-04 11:57] VITALS: BP 137/88
--- NOTE | 2018-01-06 12:49 | Discharge Summary ---
Discharge Summary Discharge Summary _ DATE OF ADMISSION: 12/31/2017 DATE OF DISCHARGE: 01/04/2018 REASON FOR ADMISSION: 57 years old female with history of hypertension, COPD, bipolar disorder, recent cervical spine fusion in September 2017, presented to emergency department with complain of generalized weakness, nausea , poor appetite and neck pain. She claimed that she had not been eaten for 4 days due to poor appetite. Patient is recently status post cervical spine fusion in September 2017. Patient is taking [place] for pain management. She denied fever, chills . She denied chest pain and shortness of breath. No vomiting, no diarrhea. Laboratory workup revealed no leukocytosis ,hemoglobin 11.9 , hematocrit 36.2. Renal parameters electrolytes and LFT were stable. Urinalysis revealed pyuria, but only few bacteria. Urine toxicology screen was positive for benzodiazepine and opiates. Vital signs were stable except blood pressure was borderline elevated 149/93 . Patient admitted with diagnoses of generalized weakness, dehydration, nausea, intractable neck pain, psychosis. CONSULTANTS: psychiatrist Pain specialist Dr. Landaverde [facility] COURSE: Patient admitted. Patient started on IV hydration. Renal parameters and electrolytes were closely monitored, electrolytes were corrected as needed, nephrotoxins were avoided. Pain specialist closely followed. Pain management was provided as per pain specialist recommendations. Bowel regimen instituted . Pain was controlled. Psychiatrist seen and evaluated patient , and diagnosed patient with major depressive disorder. Psychiatrist provided supportive therapy and recommended to continue with current psychiatric medication regimen. Blood pressure was managed with calcium channel florentino and remained stable. GI prophylaxis provided. Diet slowly started and advanced as tolerated. Antiemetics provided as needed. Patient consumed 90-100 % of food tray and was able to tolerate diet. X-ray of the cervical spine revealed no gross bony trauma. Patient clinically improved and was stable for discharge home FINAL DIAGNOSES: Dehydration Episode of generalized weakness with nausea, likely related to dehydration Intractable neck pain Cervical DDD Cervical spondylosis Cervical herniated disc Cervical radiculopathy status post recent cervical fusion Hypertension Major depressive disorder DISCHARGE MEDICATIONS: See Medication Reconciliation list. DISCHARGE INSTRUCTIONS: Patient was discharged home . Follow up with primary care provider in one to two week. I have been assigned to dictate discharge summary for this account. I was not involved in the patient's management. Leonor Escobar NP Jan 06, 2018 12:49
== END 2018-01-04 14:30 | disposition home or self-care (01) | DRG 641 ==
LOC: EDBD 12:07 → EDUNIT# 12:07 → EMR 13:10 → 4W 16:57 → EDBEDREQ 19:39 → 4W 23:24
DX: E86.0 Dehydration (principal); N39.0 Urinary tract infection, site not specified; I10 Essential (primary) hypertension; F31.9 Bipolar disorder, unspecified; Z98.1 Arthrodesis status
CPT/HCPCS: 36415; 72040; 80053; 80307; 81001; 83690; 85025; J2405

== ENCOUNTER 2018-04-23 19:46 | Emergency (ER) | payer MEDICARE, OTHER ==
[~2018-04-23] VITALS: Ht 154.9 cm; Wt 74.4 kg
[~2018-04-23 19:46] MED LIST changes: +BENADRYL25 MG ORAL; +BUPROPION XL150 MG ORAL; +SEROQUEL100 MG ORAL; +ZOFRAN4 MG ORAL
--- NOTE | 2018-04-23 20:19 | Diagnostic Imaging Report ---
EXAM: XR Chest, 1 View CLINICAL HISTORY: CP TECHNIQUE: Frontal view of the chest. COMPARISON: No relevant prior studies available. FINDINGS: Lungs: No consolidation. Pleural space: Unremarkable. No pneumothorax. Heart: Large cardiomediastinal silhouette. Mediastinum: See above. Bones/joints: Cervical fusion. IMPRESSION: No acute findings.
[2018-04-23] MEDS ORDERED: POTASSIUM CL 225 MEQ PO (20:27)
[2018-04-23] MEDS ORDERED: DYAZIDE1 CAP ORAL (20:27)
[2018-04-23] MEDS ORDERED: TRAMADOL HCL50 MG ORAL (20:27)
[2018-04-23] MEDS ORDERED: Morphine Sulfate 4mg/ml Inj (IV/IM USE ONLY) IM ONE (20:45)
[2018-04-23] MEDS ORDERED: LORazepam 0.5mg tab ORAL ONE (20:45)
[2018-04-23 20:47] LABS: BASOPHILS % (AUTO) 1.4 % (0.0-2.0); EOSINOPHILS % (AUTO) 2.4 % (0.0-3.0); HEMATOCRIT 41.1 % (37.0-47.0); HEMOGLOBIN 14.5 G/DL (12.0-16.0); LYMPHOCYTES % (AUTO) 40.3 % (20.0-45.0); MEAN CORPUSCULAR VOLUME 84 FL (80-99); MONOCYTES % (AUTO) 4.4 % (1.0-10.0); NEUTROPHILS % (AUTO) 51.5 % (45.0-75.0); PLATELET COUNT 140 K/UL (150-450); RED BLOOD COUNT 4.89 M/UL (4.20-5.40); WHITE BLOOD COUNT 11.4 K/UL (4.8-10.8)
[2018-04-23 20:54] LABS: ANION GAP 6 mmol/L (5-15); BLOOD UREA NITROGEN 12 mg/dL (7-18); CALCIUM 9.2 MG/DL (8.5-10.1); CARBON DIOXIDE 32 MMOL/L (21-32); CHLORIDE 102 MMOL/L (98-107); CREATININE 0.9 MG/DL (0.55-1.30); POTASSIUM 3.4 MMOL/L (3.5-5.1); SODIUM 140 MMOL/L (136-145)
[2018-04-23 21:09] LABS: ALANINE AMINOTRANSFERASE 21 U/L (12-78); ALBUMIN/GLOBULIN RATIO 1.1 (1.0-2.7); ALKALINE PHOSPHATASE 101 U/L (46-116); ASPARTATE AMINO TRANSFERASE 18 U/L (15-37); BILIRUBIN,TOTAL 0.7 MG/DL (0.2-1.0); CKMB 0.5 NG/ML (0.0-3.6); CREATINE KINASE 115 U/L (26-308)
--- NOTE | 2018-04-23 21:50 | Emergency Room Report ---
History of Present Illness General Chief Complaint: Pain Source: Patient Present Illness HPI This patient has chronic pain. She has had multiple surgeries and has disc problems brought in her back. She is on chronic pain medications, muscle relaxants and narcotics. She states that for the past 2 days she has been in severe all over body pain. She states that when she gets like this none of her home pain medications work. She denies recent illness. She denies cough or congestion. She denies abdominal pain. She denies nausea or vomiting. She has no other complaints. Allergies: Coded Allergies: No Known Allergies (Unverified , 10/20/16) Patient History Past Medical History: see triage record, HTN, COPD, psych hx - Bipolar Social History: Denies: smoking, alcohol use, drug use Last Menstrual Period: 2 decades ago Now: No Reviewed Nursing Documentation: PMH: Agreed; PSxH: Agreed Nursing Documentation-PMH Hx Cardiac Problems: Yes Hx Hypertension: Yes Hx Pacemaker: No Hx Asthma: No Hx COPD: Yes Hx Diabetes: No Hx Cancer: No Hx Gastrointestinal Problems: No Hx Dialysis: No Hx Neurological Problems: No Hx Cerebrovascular Accident: No Hx Seizures: No Hx Syncope: Yes Review of Systems All Other Systems: negative except mentioned in HPI Physical Exam Vital Signs Date Time Temp Pulse Resp B/P (MAP) Pulse Ox O2 Delivery O2 Flow Rate FiO2 04/23/18 19:49 99.0 84 18 158/110 99 Room Air Sp02 EP Interpretation: reviewed, normal General Appearance: no apparent distress, alert, GCS 15, non-toxic Head: normocephalic, atraumatic Eyes: bilateral eye normal inspection, bilateral eye PERRL ENT: hearing grossly normal, normal pharynx, no angioedema, normal voice Neck: full range of motion, supple/symm/no masses Respiratory: chest non-tender, lungs clear, normal breath sounds, no respiratory distress, no retraction, no accessory muscle use, speaking full sentences Cardiovascular #1: regular rate, rhythm, no edema Gastrointestinal: normal bowel sounds, non tender, soft, non-distended, no guarding, no rebound Rectal: deferred Musculoskeletal: back normal, normal range of motion, other - R. wrist and arm deformed (at baseline) Neurologic: alert, oriented x3, responsive, motor strength/tone normal, sensory intact, speech normal Psychiatric: judgement/insight normal, memory normal, mood/affect normal, no suicidal/homicidal ideation Skin: normal color, no rash, warm/dry, well hydrated Medical Decision Making Diagnostic Impression: Primary Impression: Chronic pain ER Course This patient has a clinical presentation consistent with chronic pain. There are no red flags on physical exam or history that would make me concerned for underlying fracture. Therefore, I do not feel that I need to obtain imaging studies. There is no evidence of compartment syndrome or new condition. There is no neurologic deficit. The patient was instructed on supportive home measures. No emergency medical condition was identified. The patient was given return precautions and followup instructions. Laboratory Tests Test 04/23/18 20:29 04/23/18 21:30 White Blood Count 11.4 K/UL (4.8-10.8) H Red Blood Count 4.89 M/UL (4.20-5.40) Hemoglobin 14.5 G/DL (12.0-16.0) Hematocrit 41.1 % (37.0-47.0) Mean Corpuscular Volume 84 FL (80-99) Mean Corpuscular Hemoglobin 29.6 PG (27.0-31.0) Mean Corpuscular Hemoglobin Concent 35.2 G/DL (32.0-36.0) Red Cell Distribution Width 13.0 % (11.6-14.8) Platelet Count 140 K/UL (150-450) L Mean Platelet Volume 7.1 FL (6.5-10.1) Neutrophils (%) (Auto) 51.5 % (45.0-75.0) Lymphocytes (%) (Auto) 40.3 % (20.0-45.0) Monocytes (%) (Auto) 4.4 % (1.0-10.0) Eosinophils (%) (Auto) 2.4 % (0.0-3.0) Basophils (%) (Auto) 1.4 % (0.0-2.0) Sodium Level 140 MMOL/L (136-145) Potassium Level 3.4 MMOL/L (3.5-5.1) L Chloride Level 102 MMOL/L (98-107) Carbon Dioxide Level 32 MMOL/L (21-32) Anion Gap 6 mmol/L (5-15) Blood Urea Nitrogen 12 mg/dL (7-18) Creatinine 0.9 MG/DL (0.55-1.30) Estimate Glomerular Filtration Rate > 60 mL/min (>60) Glucose Level 91 MG/DL (74-106) Calcium Level 9.2 MG/DL (8.5-10.1) Total Bilirubin 0.7 MG/DL (0.2-1.0) Aspartate Amino Transferase (AST) 18 U/L (15-37) Alanine Aminotransferase (ALT) 21 U/L (12-78) Alkaline Phosphatase 101 U/L (46-116) Total Creatine Kinase 115 U/L (26-308) Creatine Kinase MB 0.5 NG/ML (0.0-3.6) Creatine Kinase MB Relative Index 0.4 Troponin I 0.000 ng/mL (0.000-0.056) Total Protein 7.5 G/DL (6.4-8.2) Albumin 4.0 G/DL (3.4-5.0) Globulin 3.5 g/dL Albumin/Globulin Ratio 1.1 (1.0-2.7) Urine Color Pending Urine Appearance Pending Urine pH Pending Urine Specific [place] Pending Urine Protein Pending Urine Glucose (UA) Pending Urine Ketones Pending Urine Blood Pending Urine Nitrite Pending Urine Bilirubin Pending Urine Urobilinogen Pending Urine Leukocyte Esterase Pending Urine Opiates Screen Pending Urine Barbiturates Screen Pending Phencyclidine (PCP) Screen Pending Urine Amphetamines Screen Pending Urine Benzodiazepines Screen Pending Urine Cocaine Screen Pending Urine Marijuana (THC) Screen Pending EKG Diagnostic Results Rate: normal Rhythm: NSR ST Segments: no acute changes Rhythm Strip Diag. Results EP Interpretation: yes Rate: 70's Rhythm: NSR, no PVC's, no ectopy Last Vital Signs Date Time Temp Pulse Resp B/P (MAP) Pulse Ox O2 Delivery O2 Flow Rate FiO2 04/23/18 19:49 99.0 84 18 158/110 99 Room Air Status: improved Disposition: HOME, SELF-CARE Condition: Improved Referrals: [facility],REFERRING (PCP) Roxanna Lou DO Apr 23, 2018 21:50
[2018-04-23 22:00] VITALS: BP 155/96
[2018-04-23 22:31] LABS: APPEARANCE,URINE CLEAR; BILIRUBIN, URINE NEGATIVE (NEGATIVE); COLOR,URINE PALE YELLOW; GLUCOSE, URINE (UA) NEGATIVE (NEGATIVE); KETONES,URINE NEGATIVE (NEGATIVE); LEUKOCYTE ESTERASE ,URINE NEGATIVE (NEGATIVE); NITRITE,URINE NEGATIVE (NEGATIVE); PH,URINE 7 (4.5-8.0); PROTEIN,URINE NEGATIVE (NEGATIVE); UROBILINOGEN,URINE NORMAL MG/DL (0.0-1.0)
[2018-04-24] VITALS: BP 149/86
[2018-04-24] MEDS ORDERED: HYDROmorphone 1mg/ml Carpuject IM ONE (00:15)
[2018-04-24] MEDS ORDERED: ROBAXIN500 MG PO (00:47)
[2018-04-24] MEDS ORDERED: NORCO 5-325 TA1 EACH ORAL (00:47)
[2018-04-24 01:05] VITALS: BP 149/86
== END 2018-04-24 01:05 | disposition home or self-care (01) ==
LOC: EDBD 19:46 → EDUNIT# 19:46 → EMR 20:07
DX: G89.29 Other chronic pain (principal); I10 Essential (primary) hypertension; J44.9 Chronic obstructive pulmonary disease, unspecified
CPT/HCPCS: 36415; 71045; 80053; 80307; 81003; 82550; 82553; 84484; 85025; 93005; 96372; 99284; J1170; J2270

== ENCOUNTER 2018-05-07 08:32 | Emergency (ER) | payer MEDICARE, OTHER ==
[~2018-05-07] VITALS: Ht 154.9 cm; Wt 74.4 kg
[~2018-05-07 08:32] MED LIST changes: +DYAZIDE1 CAP ORAL; +NORCO 5-325 TA1 EACH ORAL; +POTASSIUM CL 225 MEQ PO; +ROBAXIN500 MG PO; +TRAMADOL HCL50 MG ORAL
--- NOTE | 2018-05-07 08:43 | Emergency Room Report ---
History of Present Illness General Chief Complaint: Pain Source: Patient Present Illness HPI 58-year-old female with a h/o chronic pain presents to ED complaining of total body pain x3 days, reports she hasn't eaten in 3 days either and that when it gets cold outside her neck and back hurt even more. She reports she has multilevel spinal disk disease. Notes pain in her back, abdomen and all extremities. Pain is a 10 out of 10, dull, nonradiating, consistent with her disk pain. She reports that she likes it when she gets dilaudid because it helps her pain. No other alleviating relieving factors, oral ibuprofen at home hasn't helped. She does not have a pain specialist, but her PMD Dr. Santana has told her she is being referred to one. Denies shortness of breath. Denies fevers or chills. Patient states she feels very weak. Has no appetite. Denies constipation/obstipation. No other aggravating or relieving factors. Denies any other associated symptoms Allergies: Coded Allergies: No Known Allergies (Unverified , 10/20/16) Patient History Past Medical History: see triage record Now: No Reviewed Nursing Documentation: PMH: Agreed; PSxH: Agreed Nursing Documentation-PMH Past Medical History: No History, Except For Hx Cardiac Problems: Yes Hx Hypertension: Yes Hx Pacemaker: No Hx Asthma: No Hx COPD: Yes Hx Diabetes: No Hx Cancer: No Hx Gastrointestinal Problems: No Hx Dialysis: No Hx Neurological Problems: No Hx Cerebrovascular Accident: No Hx Seizures: No Hx Syncope: Yes Review of Systems All Other Systems: negative except mentioned in HPI Physical Exam Vital Signs Date Time Temp Pulse Resp B/P (MAP) Pulse Ox O2 Delivery O2 Flow Rate FiO2 05/07/18 08:29 98.1 97 20 144/70 98 Room Air Sp02 EP Interpretation: reviewed, normal General Appearance: no apparent distress, alert, non-toxic Head: normocephalic Eyes: bilateral eye normal inspection, bilateral eye PERRL, bilateral eye EOMI ENT: normal ENT inspection, hearing grossly normal, normal pharynx, no angioedema, normal voice, moist mucus membranes Neck: normal inspection, full range of motion, supple, supple/symm/no masses Respiratory: chest non-tender, lungs clear, normal breath sounds, chest symmetrical, palpation of chest normal Cardiovascular #1: normal peripheral pulses, regular rate, rhythm Cardiovascular #2: 2+ radial (L) Gastrointestinal: normal inspection, non tender, soft, no mass, no guarding, no rebound Rectal: deferred Genitourinary: normal inspection, no CVA tenderness Musculoskeletal: back normal, gait/station normal, normal range of motion, non- tender, no calf tenderness, other - L forearm and hand deformity, chronic from childhood injury Neurologic: alert, responsive, copyright manager III-XII nml as tested, motor strength/tone normal, sensory intact, speech normal Psychiatric: judgement/insight normal, memory normal, mood/affect normal, anxious Skin: normal color, no rash, warm/dry, normal turgor Lymphatic: no adenopathy Medical Decision Making Diagnostic Impression: Primary Impression: Pain ER Course Patient with chronic pain and concern for dehydration. No vomiting and patient reports normal BM, last one today, nonbloody. No fever, SOB, no high risk features on history or physical exam. Likely chronic pain. Will give morphine 4mg, zofran, ivf, toradol, haldol, and re-assess after labs, flu swab, ua complete. Patient with slightly elevated liver enzymes, but not RUQ pain or tenderness on exam. UA with ketones and hematuria, do not suspect kidney stones, just dehydration. Patient rec'd 2L NSS, passed a PO challenge, reports she has chronically low potassium but did eat a breakfast tray, will dc. Last Vital Signs Date Time Temp Pulse Resp B/P (MAP) Pulse Ox O2 Delivery O2 Flow Rate FiO2 05/07/18 08:29 98.1 97 20 144/70 98 Room Air Disposition: HOME, SELF-CARE Condition: Stable JONATHAN BYRD M.D May 07, 2018 08:43
[2018-05-07] MEDS ORDERED: Haloperidol 5mg/ml Inj IM ONE (08:45)
[2018-05-07] MEDS ORDERED: Morphine Sulfate 4mg/ml Inj (IV/IM USE ONLY) IVP ONE (08:45)
[2018-05-07] MEDS ORDERED: Ketorolac 30mg Inj IV ONE (08:45)
[2018-05-07 09:17] LABS: APPEARANCE,URINE CLEAR; BILIRUBIN, URINE NEGATIVE (NEGATIVE); COLOR,URINE PALE YELLOW; GLUCOSE, URINE (UA) NEGATIVE (NEGATIVE); KETONES,URINE 2+ (NEGATIVE); LEUKOCYTE ESTERASE ,URINE 1+ (NEGATIVE); NITRITE,URINE NEGATIVE (NEGATIVE); PH,URINE 6 (4.5-8.0); PROTEIN,URINE 1+ (NEGATIVE); UROBILINOGEN,URINE NORMAL MG/DL (0.0-1.0)
[2018-05-07 09:46] LABS: BASOPHILS % (AUTO) 1.1 % (0.0-2.0); EOSINOPHILS % (AUTO) 0.5 % (0.0-3.0); HEMATOCRIT 42.3 % (37.0-47.0); HEMOGLOBIN 14.5 G/DL (12.0-16.0); LYMPHOCYTES % (AUTO) 27.2 % (20.0-45.0); MEAN CORPUSCULAR VOLUME 87 FL (80-99); MONOCYTES % (AUTO) 4.4 % (1.0-10.0); NEUTROPHILS % (AUTO) 66.9 % (45.0-75.0); PLATELET COUNT 303 K/UL (150-450); RED BLOOD COUNT 4.89 M/UL (4.20-5.40); RED CELL DISTRIBUTION WIDTH 13.5 % (11.6-14.8); WHITE BLOOD COUNT 11.6 K/UL (4.8-10.8)
[2018-05-07 09:53] LABS: ANION GAP 9 mmol/L (5-15); BLOOD UREA NITROGEN 10 mg/dL (7-18); CALCIUM 9.1 MG/DL (8.5-10.1); CARBON DIOXIDE 26 MMOL/L (21-32); CHLORIDE 102 MMOL/L (98-107); CREATININE 0.8 MG/DL (0.55-1.30); POTASSIUM 3.4 MMOL/L (3.5-5.1); SODIUM 137 MMOL/L (136-145)
[2018-05-07 09:57] LABS: ALANINE AMINOTRANSFERASE 159 U/L (12-78); ALBUMIN 3.8 G/DL (3.4-5.0); ALBUMIN/GLOBULIN RATIO 1.1 (1.0-2.7); ALKALINE PHOSPHATASE 134 U/L (46-116); ASPARTATE AMINO TRANSFERASE 64 U/L (15-37); BILIRUBIN,TOTAL 0.4 MG/DL (0.2-1.0)
[2018-05-07 10:01] VITALS: BP 128/81
[2018-05-07] MEDS ORDERED: NORCO 5-325 TA1 EACH ORAL (10:14)
[2018-05-07 11:26] VITALS: BP 128/74
== END 2018-05-07 11:29 | disposition home or self-care (01) ==
LOC: EDBD 08:32 → EMR 08:43 → CANBEDREQ 10:29 → EMR 11:29
DX: M79.10 Myalgia, unspecified site (principal); I10 Essential (primary) hypertension; J44.9 Chronic obstructive pulmonary disease, unspecified
CPT/HCPCS: 36415; 80053; 81003; 83690; 84484; 85025; 85610; 85730; 86710; 96361; 96372; 96374; 96375; 99284; J1630; J1885; J2270; J2405

== ENCOUNTER 2018-07-12 07:35 | Emergency (ER) | payer MEDICARE ==
[~2018-07-12] VITALS: Ht 154.9 cm; Wt 68.0 kg
--- NOTE | 2018-07-12 07:42 | NUR ---
ED Nurse Note: Pt brought in by ambulance from home due to chronic pain condition. Denies trauma/injury. pt has a hx of arthritis and metal blair implants. Noted to have soft collar neck in place, per EMS, pt will have a neck surgery 03/2019 of this year. Pt is AAO x4, follows commands. VSS.
[2018-07-12] MEDS ORDERED: Morphine Sulfate 4mg/ml Inj (IV USE ONLY) IVP ONE (08:00)
--- NOTE | 2018-07-12 08:05 | NUR ---
ED Nurse Note: Blood collected and sent.
--- NOTE | 2018-07-12 08:07 | Emergency Room Report ---
History of Present Illness General Chief Complaint: Pain Source: Patient, Medical Record Present Illness HPI Patient presents with complaints of total body pain reports that when the weather is cold she has increased pain to her joints Patient has undergone 2 surgeries in her neck also reports surgery to the right upper arm with tendons taken out of her leg to be put into the arm Denies any shortness of breath denies any vomiting or diarrhea patient has chronic disability with contracted right hand and decreased ambulation Denies any focal change recently denies any headache denies any other fall or trauma body ache and cramping is 5 out of 10 patient reports that she was prescribed pain patches however The cost $300 and not able to fill the prescription Allergies: Coded Allergies: No Known Allergies (Unverified , 10/20/16) Patient History Past Medical History: see triage record Pertinent Family History: none Reviewed Nursing Documentation: PMH: Agreed; PSxH: Agreed Nursing Documentation-PMH Past Medical History: No History, Except For Hx Cardiac Problems: No - arthritis Hx Hypertension: Yes Hx Pacemaker: No Hx Asthma: No Hx COPD: Yes Hx Diabetes: No Hx Cancer: No Hx Gastrointestinal Problems: No Hx Dialysis: No Hx Neurological Problems: No Hx Cerebrovascular Accident: No Hx Seizures: No Hx Syncope: Yes Review of Systems All Other Systems: negative except mentioned in HPI Physical Exam Vital Signs Date Time Temp Pulse Resp B/P (MAP) Pulse Ox O2 Delivery O2 Flow Rate FiO2 07/12/18 07:32 98.8 80 18 150/78 99 Room Air Sp02 EP Interpretation: reviewed, normal General Appearance: well appearing, no apparent distress Head: normocephalic, atraumatic Eyes: bilateral eye PERRL ENT: normal pharynx, no angioedema Neck: other - In place not further removed Respiratory: lungs clear, no retraction, no accessory muscle use Cardiovascular #1: regular rate, rhythm Gastrointestinal: non tender, soft Genitourinary: no CVA tenderness Musculoskeletal: other - Patient has chronic deformity with contracted right hand, left hand has appropriate corrugator helper, able to flex at both feet Neurologic: alert, oriented x3 Psychiatric: normal inspection Skin: no rash, warm/dry Lymphatic: no adenopathy Medical Decision Making Diagnostic Impression: Primary Impression: Myalgia ER Course Given the patient's history and presentation Multiple differentials are considered patient is complex requiring establishing IV and blood work Patient has had abnormal liver function test in the past on today's examination Appears significantly improved Blood work is at baseline levels patient has improved There is significant lack of appropriate follow-up and difficulty obtaining appropriate medication patient reports difficulty with coverage of her pain medication At this time there are no other emergent pathology requiring further inpatient care and patient will have close outpatient follow-up Labs Test 07/12/18 08:08 White Blood Count 10.7 K/UL (4.8-10.8) Red Blood Count 4.64 M/UL (4.20-5.40) Hemoglobin 14.1 G/DL (12.0-16.0) Hematocrit 40.3 % (37.0-47.0) Mean Corpuscular Volume 87 FL (80-99) Mean Corpuscular Hemoglobin 30.4 PG (27.0-31.0) Mean Corpuscular Hemoglobin Concent 34.9 G/DL (32.0-36.0) Red Cell Distribution Width 13.7 % (11.6-14.8) Platelet Count 291 K/UL (150-450) Mean Platelet Volume 6.7 FL (6.5-10.1) Neutrophils (%) (Auto) 62.6 % (45.0-75.0) Lymphocytes (%) (Auto) 29.5 % (20.0-45.0) Monocytes (%) (Auto) 4.5 % (1.0-10.0) Eosinophils (%) (Auto) 1.8 % (0.0-3.0) Basophils (%) (Auto) 1.6 % (0.0-2.0) Sodium Level 143 MMOL/L (136-145) Potassium Level 3.6 MMOL/L (3.5-5.1) Chloride Level 106 MMOL/L (98-107) Carbon Dioxide Level 29 MMOL/L (21-32) Anion Gap 8 mmol/L (5-15) Blood Urea Nitrogen 17 mg/dL (7-18) Creatinine 0.9 MG/DL (0.55-1.30) Estimat Glomerular Filtration Rate > 60 mL/min (>60) Glucose Level 105 MG/DL (74-106) Calcium Level 9.1 MG/DL (8.5-10.1) Total Bilirubin 0.4 MG/DL (0.2-1.0) Aspartate Amino Transf (AST/SGOT) 18 U/L (15-37) Alanine Aminotransferase (ALT/SGPT) 23 U/L (12-78) Alkaline Phosphatase 118 U/L (46-116) Total Protein 6.9 G/DL (6.4-8.2) Albumin 3.7 G/DL (3.4-5.0) Globulin 3.2 g/dL Albumin/Globulin Ratio 1.2 (1.0-2.7) Lipase 99 U/L (73-393) Rhythm Strip Diag. Results EP Interpretation: yes Rate: 60 Rhythm: NSR, no PVC's, no ectopy Last Vital Signs Date Time Temp Pulse Resp B/P (MAP) Pulse Ox O2 Delivery O2 Flow Rate FiO2 07/12/18 07:32 98.8 80 18 150/78 99 Room Air Status: improved Disposition: HOME, SELF-CARE Condition: Improved Referrals: [facility] (PCP) Additional Instructions: Patient is provided with the discharge instructions notified to follow up with primary doctor in the next 2-3 days otherwise return to the er with any worsening symptoms. Please note that this report is being documented using [employer] technology. This can lead to erroneous entry secondary to incorrect interpretation by the dictating instrument. Sheyla Astorga DO Jul 12, 2018 08:07
[2018-07-12 08:27] LABS: BASOPHILS % (AUTO) 1.6 % (0.0-2.0); EOSINOPHILS % (AUTO) 1.8 % (0.0-3.0); HEMATOCRIT 40.3 % (37.0-47.0); HEMOGLOBIN 14.1 G/DL (12.0-16.0); LYMPHOCYTES % (AUTO) 29.5 % (20.0-45.0); MEAN CORPUSCULAR VOLUME 87 FL (80-99); MONOCYTES % (AUTO) 4.5 % (1.0-10.0); NEUTROPHILS % (AUTO) 62.6 % (45.0-75.0); PLATELET COUNT 291 K/UL (150-450); RED BLOOD COUNT 4.64 M/UL (4.20-5.40); RED CELL DISTRIBUTION WIDTH 13.7 % (11.6-14.8); WHITE BLOOD COUNT 10.7 K/UL (4.8-10.8)
[2018-07-12 08:39] LABS: ANION GAP 8 mmol/L (5-15); BLOOD UREA NITROGEN 17 mg/dL (7-18); CALCIUM 9.1 MG/DL (8.5-10.1); CARBON DIOXIDE 29 MMOL/L (21-32); CHLORIDE 106 MMOL/L (98-107); CREATININE 0.9 MG/DL (0.55-1.30); POTASSIUM 3.6 MMOL/L (3.5-5.1); SODIUM 143 MMOL/L (136-145)
[2018-07-12 08:44] LABS: ALANINE AMINOTRANSFERASE 23 U/L (12-78); ALBUMIN 3.7 G/DL (3.4-5.0); ALBUMIN/GLOBULIN RATIO 1.2 (1.0-2.7); ALKALINE PHOSPHATASE 118 U/L (46-116); ASPARTATE AMINO TRANSFERASE 18 U/L (15-37); BILIRUBIN,TOTAL 0.4 MG/DL (0.2-1.0)
[2018-07-12] MEDS ORDERED: Hydromorphone 0.5mg/0.5ml inj IVP ONE (10:15)
[2018-07-12 10:57] VITALS: BP 145/82
--- NOTE | 2018-07-12 10:57 | NUR ---
ED Nurse Note: Pt cleared by ER MD for discharge. DC instructions given and explained to pt and verbalized understanding of teachings. All medical devices such as ID band/IV removed. Pt is AAO x4, and left via an ambulance for transportation to go back home.
== END 2018-07-12 10:57 | disposition home or self-care (01) ==
LOC: EDBD 07:35 → EMR 07:54
DX: M79.10 Myalgia, unspecified site (principal); I10 Essential (primary) hypertension; J44.9 Chronic obstructive pulmonary disease, unspecified
CPT/HCPCS: 36415; 80053; 83690; 85025; 96361; 96374; 96375; 99284; J1170; J2270; J2405

== ENCOUNTER 2018-08-06 20:22 | Emergency (ER) | payer MEDICARE ==
[~2018-08-06] VITALS: Ht 165.1 cm; Wt 77.1 kg
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
[2018-08-06 20:24] VITALS: BP 163/97
--- NOTE | 2018-08-06 20:26 | NUR ---
ED Nurse Note: BROUGHT BY RA [id number]
[2018-08-06] MEDS ORDERED: HYDROcodone/Acetamin 5/325 tab ORAL ONE (21:15)
[2018-08-06] MEDS ORDERED: IBUPROFEN600 MG ORAL (21:25)
--- NOTE | 2018-08-06 21:25 | Emergency Room Report ---
History of Present Illness General Chief Complaint: Neck Pain Source: Patient Present Illness HPI This is a 58-year-old female with history of chronic pain. She has a history of neck surgery. She presents with chief point of neck pain, back pain, leg pain. Is an ongoing problem but worse in the last few days. Said she is out of her pain medication. Pain is 10 out of 10. Worse with movement. No nausea no vomiting. No fever or chills. Denies any other complaint. Allergies: Coded Allergies: No Known Allergies (Unverified , 10/20/16) Patient History Past Medical History: see triage record, old chart reviewed Past Surgical History: other Pertinent Family History: none Social History: Denies: smoking Last Menstrual Period: n/a Now: No Immunizations: other Reviewed Nursing Documentation: PMH: Agreed; PSxH: Agreed Nursing Documentation-PMH Past Medical History: No History, Except For Hx Cardiac Problems: No - arthritis Hx Hypertension: Yes Hx Pacemaker: No Hx Asthma: No Hx COPD: Yes Hx Diabetes: No Hx Cancer: No Hx Gastrointestinal Problems: No Hx Dialysis: No Hx Neurological Problems: No Hx Cerebrovascular Accident: No Hx Seizures: No Hx Syncope: Yes Review of Systems Eye: Denies: eye pain, blurred vision ENT: Denies: ear pain, nose congestion, throat swelling Respiratory: Denies: cough, shortness of breath Cardiovascular: Denies: chest pain, palpitations Gastrointestinal: Denies: abdominal pain, diarrhea, nausea, vomiting Musculoskeletal: Reports: back pain, joint pain Skin: Denies: rash Neurological: Denies: headache, numbness Endocrine: Denies: increased thirst, increased urine Hematologic/Lymphatic: Denies: easy bruising All Other Systems: negative except mentioned in HPI Physical Exam Vital Signs Date Time Temp Pulse Resp B/P (MAP) Pulse Ox O2 Delivery O2 Flow Rate FiO2 08/06/18 20:04 98.2 89 18 163/97 98 Room Air vitals with high blood pressure Sp02 EP Interpretation: reviewed, normal General Appearance: well appearing, no apparent distress, alert Head: normocephalic, atraumatic Eyes: bilateral eye PERRL, bilateral eye EOMI ENT: hearing grossly normal, normal pharynx Neck: full range of motion, supple, no meningismus, tender - Patient is wearing a soft collar. No deformity. Diffuse pain. Respiratory: chest non-tender, lungs clear, normal breath sounds Cardiovascular #1: regular rate, rhythm, no murmur Gastrointestinal: normal bowel sounds, non tender, no mass, no organomegaly, no bruit, non-distended Musculoskeletal: back normal, normal range of motion Neurologic: alert, oriented x3 Psychiatric: mood/affect normal Skin: warm/dry Medical Decision Making Diagnostic Impression: Primary Impression: Neck pain Additional Impression: Chronic pain Qualified Codes: G89.4 - Chronic pain syndrome ER Course Patient presents with exacerbation of her chronic pain. No trauma to indicate fracture or dislocation. No red flags indicate cauda equina syndrome, spinal epidural abscess or neoplastic process. On the [employer] system, she has multiple prescription from different doctors. She was getting chronic pain medication but that stopped in May. She also has an armband from a recent hospitalizations last visit on August 03. Last Vital Signs Date Time Temp Pulse Resp B/P (MAP) Pulse Ox O2 Delivery O2 Flow Rate FiO2 08/06/18 20:24 98.2 89 18 163/97 98 Room Air Status: improved Disposition: HOME, SELF-CARE Condition: Stable Scripts Ibuprofen* (MOTRIN*) 600 Mg Tablet 600 MG ORAL THREE TIMES A DAY, #30 TAB 0 Refills Prov: Corwin Murillo MD 08/06/18 Additional Instructions: Follow-up with your doctor in 7 days. Follow-up with your pain specialist. Return if symptom worsen. Corwin Murillo MD Aug 06, 2018 21:25
[2018-08-06 21:31] VITALS: BP 160/89
--- NOTE | 2018-08-06 21:32 | NUR ---
ER DISCHARGE NOTE: Patient is cleared to be discharged per ERMD, pt is aox4, on room air, with stable vital signs. pt was given dc and prescription instructions, pt was able to verbalize understanding, pt id band remvoved. pt is able to ambulate with steady gait. pt took all belongings.
--- NOTE | 2018-08-06 21:33 | NUR ---
ED Nurse Note: PT FRIEND WILL TAKE HER HOME
== END 2018-08-06 21:32 | disposition home or self-care (01) ==
LOC: EDBD 20:22 → EMR 20:41
DX: M54.2 Cervicalgia (principal); G89.29 Other chronic pain; I10 Essential (primary) hypertension; J44.9 Chronic obstructive pulmonary disease, unspecified
CPT/HCPCS: 99282

== ENCOUNTER 2018-10-04 16:06 | Emergency (ER) | payer MEDICARE ==
[~2018-10-04] VITALS: Ht 154.9 cm; Wt 72.1 kg
[~2018-10-04 16:06] MED LIST changes: +HYDROCODON-ACE1 EA15 ORAL; +IBUPROFEN600 MG ORAL
[2018-10-04 16:30] VITALS: BP 156/98
--- NOTE | 2018-10-04 16:30 | NUR ---
ED Nurse Note: pt was brought in by ambulance c/o pain in different parts of the body, pt stated she is home alone when it happend. pt stated the she called 911 before she blacked out for pain. pt is complaining of pain on neck, shoulder, pt stated that she has arthritis, seen by ermd. with orders made and carried out. pt vs with normal limit. will continue to monitor.
[2018-10-04] MEDS ORDERED: Morphine Sulfate 4mg/ml Inj (IV USE ONLY) IVP ONE (17:00)
[2018-10-04 17:29] LABS: BASOPHILS % (AUTO) 1.5 % (0.0-2.0); EOSINOPHILS % (AUTO) 1.4 % (0.0-3.0); HEMATOCRIT 42.2 % (37.0-47.0); HEMOGLOBIN 14.7 G/DL (12.0-16.0); LYMPHOCYTES % (AUTO) 38.8 % (20.0-45.0); MEAN CORPUSCULAR VOLUME 84 FL (80-99); MONOCYTES % (AUTO) 4.4 % (1.0-10.0); NEUTROPHILS % (AUTO) 53.9 % (45.0-75.0); PLATELET COUNT 303 K/UL (150-450); RED BLOOD COUNT 5.02 M/UL (4.20-5.40); RED CELL DISTRIBUTION WIDTH 12.9 % (11.6-14.8); WHITE BLOOD COUNT 12.1 K/UL (4.8-10.8)
[2018-10-04 17:34] LABS: ANION GAP 8 mmol/L (5-15); BLOOD UREA NITROGEN 14 mg/dL (7-18); CALCIUM 9.2 MG/DL (8.5-10.1); CARBON DIOXIDE 30 MMOL/L (21-32); CHLORIDE 103 MMOL/L (98-107); CREATININE 0.9 MG/DL (0.55-1.30); POTASSIUM 3.4 MMOL/L (3.5-5.1); SODIUM 141 MMOL/L (136-145)
[2018-10-04 17:40] LABS: ALANINE AMINOTRANSFERASE 25 U/L (12-78); ALBUMIN 4.2 G/DL (3.4-5.0); ALBUMIN/GLOBULIN RATIO 1.2 (1.0-2.7); ALKALINE PHOSPHATASE 104 U/L (46-116); ASPARTATE AMINO TRANSFERASE 20 U/L (15-37); BILIRUBIN,TOTAL 0.6 MG/DL (0.2-1.0)
[2018-10-04] MEDS ORDERED: LORazepam Inj 2mg/ml 1ml IV ONE (18:00)
--- NOTE | 2018-10-04 19:05 | NUR ---
ED Nurse Note: pt stated that her fiance will pick hr up in the ed after 10 minutes
--- NOTE | 2018-10-04 19:18 | NUR ---
ED Nurse Note: RECEIVED PT FROM FIORDALIZA THOMPSON. PATIENT READY FOR DISCHARGE. DISCHARGE PAPER WORK SIGNED. WAITING FOR FIANCE TO PICK HER UP. PT IN BED WITH FAYE AO4 VSS.
[2018-10-04 19:30] VITALS: BP 156/98
--- NOTE | 2018-10-04 19:30 | NUR ---
ER DISCHARGE NOTE: Patient is cleared to be discharged per ERMD, pt is aox4, on room air, with stable vital signs. accompanied by family member. pt was given dc and prescription instructions, pt was able to verbalize understanding, pt id band and iv site removed without complications. pt is able to ambulate with steady gait. pt took all belongings.
--- NOTE | 2018-10-04 20:03 | Emergency Room Report ---
History of Present Illness General Chief Complaint: General Complaint Source: Patient Present Illness HPI 58-year-old female presents to ED for evaluation. Brought in by EMS. Patient states she's having neck pain and generalized body pain. Has had multiple surgeries to her neck and back. States that she does not have pain management doctor at this time. States she's feeling weak and dizzy. Denies chest pain or shortness of breath. Denies fevers or chills. No other aggravating relieving factors. Denies any other associated symptoms Allergies: Coded Allergies: No Known Allergies (Unverified , 10/20/16) Patient History Past Medical History: HTN, COPD Past Surgical History: none Pertinent Family History: none Social History: Denies: smoking, alcohol use, drug use Immunizations: UTD Reviewed Nursing Documentation: PMH: Agreed; PSxH: Agreed Nursing Documentation-PMH Hx Cardiac Problems: No - arthritis Hx Hypertension: Yes Hx Pacemaker: No - NECK SURGERY LIGAMENTS SUGERY Hx Asthma: No Hx COPD: Yes Hx Diabetes: No Hx Cancer: No Hx Gastrointestinal Problems: No Hx Dialysis: No Hx Neurological Problems: No Hx Cerebrovascular Accident: No Hx Seizures: No Hx Syncope: Yes Review of Systems All Other Systems: negative except mentioned in HPI Physical Exam Vital Signs Date Time Temp Pulse Resp B/P (MAP) Pulse Ox O2 Delivery O2 Flow Rate FiO2 10/04/18 16:07 98.2 82 14 100 Room Air 10/04/18 16:30 156/98 Sp02 EP Interpretation: reviewed, normal General Appearance: alert, GCS 15, non-toxic, moderate distress Head: normocephalic, atraumatic Eyes: bilateral eye normal inspection, bilateral eye PERRL ENT: hearing grossly normal, normal pharynx, no angioedema, normal voice Neck: full range of motion, supple/symm/no masses Respiratory: chest non-tender, lungs clear, normal breath sounds, speaking full sentences Cardiovascular #1: regular rate, rhythm, no edema Cardiovascular #2: 2+ carotid (R), 2+ carotid (L), 2+ radial (R), 2+ radial (L) , 2+ dorsalis pedis (R), 2+ dorsalis pedis (L) Gastrointestinal: normal bowel sounds, non tender, soft, non-distended, no guarding, no rebound Rectal: deferred Genitourinary: normal inspection, no CVA tenderness Musculoskeletal: back normal, gait/station normal, normal range of motion, non- tender Neurologic: alert, oriented x3, responsive, motor strength/tone normal, sensory intact, speech normal Psychiatric: judgement/insight normal, memory normal, mood/affect normal, no suicidal/homicidal ideation Reflexes: 3+ bicep (R), 3+ bicep (L), 3+ tricep (R), 3+ tricep (L), 3+ knee (R) , 3+ knee (L) Skin: normal color, no rash, warm/dry, well hydrated Lymphatic: no adenopathy Medical Decision Making Diagnostic Impression: Primary Impression: Chronic pain Qualified Codes: G89.29 - Other chronic pain ER Course 58-year-old female presents ED complaining of neck and back pain. Feeling weak differentialchronic pain, dehydration, hypokalemia Patient placed on stretcher. After initial history and physical I ordered pain meds, EKG, labs, IV fluids. Labsno leukocytosis, hemoglobin/hematocrit stable, electrolytes okay EKGnormal sinus rhythm no acute ischemic changes interpreted by me Patient is well-known to [facility] [place] been here multiple times for pain related complaints. I reviewed patient on [facility] and patient has been receiving multiple narcotic prescriptions I discussed this with the patient explained that I am unable to provide her any prescription since at this time. I agreed to provide her with pain medication here Safe for discharge with close outpatient follow-up. Diagnosischronic pain Stable and discharged to home. Follow-up with PMD. Return to ED if symptoms recur or worsen Labs Test 10/04/18 17:20 White Blood Count 12.1 K/UL (4.8-10.8) Red Blood Count 5.02 M/UL (4.20-5.40) Hemoglobin 14.7 G/DL (12.0-16.0) Hematocrit 42.2 % (37.0-47.0) Mean Corpuscular Volume 84 FL (80-99) Mean Corpuscular Hemoglobin 29.3 PG (27.0-31.0) Mean Corpuscular Hemoglobin Concent 34.9 G/DL (32.0-36.0) Red Cell Distribution Width 12.9 % (11.6-14.8) Platelet Count 303 K/UL (150-450) Mean Platelet Volume 6.1 FL (6.5-10.1) Neutrophils (%) (Auto) 53.9 % (45.0-75.0) Lymphocytes (%) (Auto) 38.8 % (20.0-45.0) Monocytes (%) (Auto) 4.4 % (1.0-10.0) Eosinophils (%) (Auto) 1.4 % (0.0-3.0) Basophils (%) (Auto) 1.5 % (0.0-2.0) Sodium Level 141 MMOL/L (136-145) Potassium Level 3.4 MMOL/L (3.5-5.1) Chloride Level 103 MMOL/L (98-107) Carbon Dioxide Level 30 MMOL/L (21-32) Anion Gap 8 mmol/L (5-15) Blood Urea Nitrogen 14 mg/dL (7-18) Creatinine 0.9 MG/DL (0.55-1.30) Estimat Glomerular Filtration Rate > 60 mL/min (>60) Glucose Level 93 MG/DL (74-106) Calcium Level 9.2 MG/DL (8.5-10.1) Total Bilirubin 0.6 MG/DL (0.2-1.0) Aspartate Amino Transf (AST/SGOT) 20 U/L (15-37) Alanine Aminotransferase (ALT/SGPT) 25 U/L (12-78) Alkaline Phosphatase 104 U/L (46-116) Total Protein 7.7 G/DL (6.4-8.2) Albumin 4.2 G/DL (3.4-5.0) Globulin 3.5 g/dL Albumin/Globulin Ratio 1.2 (1.0-2.7) EKG Diagnostic Results Rate: normal Rhythm: NSR ST Segments: no acute changes ASA given to the pt in ED: No Rhythm Strip Diag. Results EP Interpretation: yes Rhythm: NSR, no PVC's, no ectopy Last Vital Signs Date Time Temp Pulse Resp B/P (MAP) Pulse Ox O2 Delivery O2 Flow Rate FiO2 10/04/18 19:30 98.2 82 14 156/98 100 Room Air Status: improved Disposition: HOME, SELF-CARE Condition: Stable Patient Instructions: Chronic Pain Julian Hernandez MD October 04, 2018 20:03
--- NOTE | 2018-10-06 20:26 | Cardiology Report ---
APPROVED REPORT EKG Measurement Heart [id number] Normal sinus rhythm Normal ECG
== END 2018-10-04 19:30 | disposition home or self-care (01) ==
LOC: EDBD 16:06 → EMR 16:45
DX: G89.29 Other chronic pain (principal); M54.2 Cervicalgia; M54.9 Dorsalgia, unspecified; R53.1 Weakness; R42 Dizziness and giddiness; I10 Essential (primary) hypertension; J44.9 Chronic obstructive pulmonary disease, unspecified; M19.90 Unspecified osteoarthritis, unspecified site
CPT/HCPCS: 36415; 80053; 85025; 93005; 96361; 96374; 96375; 99284; J2270; J7040

== ENCOUNTER 2019-07-26 18:54 | Emergency (ER) | payer MEDICARE, OTHER ==
[~2019-07-26] VITALS: Ht 165.1 cm; Wt 70.3 kg
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
--- NOTE | 2019-07-26 19:03 | NUR ---
ED Nurse Note: Report recieved from FIORDALZIA Glass. Pt VSS, resting in bed, no s/s of distress noted.
[2019-07-26 19:04] VITALS: BP 132/66
--- NOTE | 2019-07-26 19:05 | NUR ---
HAND-OFF: Report given to FIORDALIZA Hendrickson. Pt in stable condition; plan of care endorsed.
--- NOTE | 2019-07-26 19:20 | NUR ---
ED Nurse Note: ERMD at bedside
[2019-07-26] MEDS ORDERED: Morphine Sulfate 2mg/ml Inj(IV/IM USE ONLY) IM ONE (19:30)
[2019-07-26] MEDS: Albuterol ud Inhalation HHN SCH (19:42)
[2019-07-26] MEDS: Ipratropium 0.02% Inh Soln 2.5ml UD HHN SCH ×2 (19:42→19:43)
--- NOTE | 2019-07-26 19:46 | NUR ---
ED Nurse Note: RT at bedside. All medications administered, VSS, no s/s of distress noted. NO adverse reactions noted.
--- NOTE | 2019-07-26 20:05 | Emergency Room Report ---
History of Present Illness General Chief Complaint: Pain Source: Patient Present Illness HPI 59-year-old female presents ED for evaluation of body pain, neck pain. Brought in by EMS from home. History of prior back and neck surgeries. Has chronic pain. States she is scheduled to see a pain management doctor this week. Pain is a 9 out of 10, dull, nonradiating. Also noting chest tightness and cough. History of COPD. Denies fevers or chills. Denies chest pain. No other aggravating relieving factors. Denies any other associated symptoms Allergies: Coded Allergies: ASPIRIN (Verified Allergy, Unknown, 07/26/19) CODEINE (Verified Allergy, Unknown, 07/26/19) IBUPROFEN (Verified Allergy, Unknown, 07/26/19) Patient History Past Medical History: HTN, COPD Past Surgical History: other - neck surgery Pertinent Family History: none Social History: Denies: smoking, alcohol use, drug use Now: No Immunizations: UTD Reviewed Nursing Documentation: PMH: Agreed; PSxH: Agreed Nursing Documentation-PMH Past Medical History: No History, Except For Hx Hypertension: Yes Hx Pacemaker: No - NECK SURGERY LIGAMENTS SUGERY Hx Asthma: No Hx COPD: Yes Hx Diabetes: No Hx Cancer: No Hx Gastrointestinal Problems: No Hx Dialysis: No Hx Neurological Problems: No Hx Cerebrovascular Accident: No Hx Seizures: No Hx Syncope: Yes Review of Systems All Other Systems: negative except mentioned in HPI Physical Exam Vital Signs Date Time Temp Pulse Resp B/P (MAP) Pulse Ox O2 Delivery O2 Flow Rate FiO2 07/26/19 18:54 98.2 110 12 132/66 (88) 98 Room Air Sp02 EP Interpretation: reviewed, normal General Appearance: no apparent distress, alert, GCS 15, non-toxic Head: normocephalic, atraumatic Eyes: bilateral eye normal inspection, bilateral eye PERRL ENT: hearing grossly normal, normal pharynx, no angioedema, normal voice Neck: full range of motion, supple/symm/no masses Respiratory: chest non-tender, accessory muscle use, speaking full sentences, wheezing Cardiovascular #1: regular rate, rhythm, no edema Cardiovascular #2: 2+ carotid (R), 2+ carotid (L), 2+ radial (R), 2+ radial (L) , 2+ dorsalis pedis (R), 2+ dorsalis pedis (L) Gastrointestinal: normal bowel sounds, non tender, soft, non-distended, no guarding, no rebound Rectal: deferred Genitourinary: normal inspection, no CVA tenderness Musculoskeletal: back normal, normal range of motion, gait/station normal, non- tender Neurologic: alert, motor strength/tone normal, oriented x3, sensory intact, responsive, speech normal Psychiatric: judgement/insight normal, memory normal, mood/affect normal, no suicidal/homicidal ideation Reflexes: 3+ bicep (R), 3+ bicep (L), 3+ tricep (R), 3+ tricep (L), 3+ knee (R) , 3+ knee (L) Skin: no rash Lymphatic: no adenopathy Medical Decision Making Diagnostic Impression: Primary Impression: COPD (chronic obstructive pulmonary disease) Qualified Codes: J44.9 - Chronic obstructive pulmonary disease, unspecified Additional Impression: Chronic pain Qualified Codes: G89.29 - Other chronic pain ER Course Hospital Course 59-year-old female presents to ED complaining of wheezing, generalized pain. h/ o COPD Differential diagnoses include: URI, bronchitis, asthma/COPD, pneumonia Clinical course Patient placed on stretcher. After initial history and physical I ordered prednisone and nebulizer treatment. She has been here multiple times for similar pain. Is receiving narcotic prescriptions. I agreed to provide her with 1 dose of IM morphine. Upon reassessment patient states cough and symptoms have improved. I discussed findings with patient. Given history of COPD I will prescribe antibiotics. Safe for discharge with close outpatient follow-up. States she has a PMD Diagnosis - COPD, chronic pain Stable and discharged home with prescriptions for Rx amoxicillin, prednisone, albuterol. Instructed to followup with PMD. Return to ED if symptoms recur or worsen Last Vital Signs Date Time Temp Pulse Resp B/P (MAP) Pulse Ox O2 Delivery O2 Flow Rate FiO2 07/26/19 19:43 87 18 100 Room Air 07/26/19 19:04 98.2 132/66 Status: improved Disposition: HOME, SELF-CARE Condition: Stable Scripts Amoxicillin* (AMOXIL*) 500 Mg Capsule 500 MG ORAL THREE TIMES A DAY, #21 CAP Prov: Julian Hernandez MD 07/26/19 Albuterol Sulfate* (ALBUTEROL SULFATE HHN*) 2.5 Mg/3 Ml Vial.neb 2.5 MG HHN Q4H PRN for Shortness of Breath, #25 VIAL Prov: Julian Hernandez MD 07/26/19 Prednisone* (PREDNISONE*) 20 Mg Tablet 40 MG ORAL DAILY, #10 TAB Prov: Julian Hernandez MD 07/26/19 Referrals: [facility] (PCP) Julian Hernandez MD Jul 26, 2019 20:05
[2019-07-26] MEDS ORDERED: ALBUTEROL2.5 MG/3 M HHN (20:57)
[2019-07-26] MEDS ORDERED: PREDNISONE20 MG ORAL (20:57)
[2019-07-26] MEDS ORDERED: AMOXICILLIN500 MG ORAL (20:57)
[2019-07-26 21:03] VITALS: BP 130/65
--- NOTE | 2019-07-26 21:03 | NUR ---
ER DISCHARGE NOTE: Patient is cleared to be discharged home per ERMD, pt is aox4, on room air, with stable vital signs. pt was given dc and prescription instructions, pt was able to verbalize understanding, pt id band. pt is able to ambulate with steady gait. pt took all belongings.
[2019-07-26] MEDS ORDERED: DIFLUCAN100 MG ORAL (21:08)
== END 2019-07-26 21:03 | disposition home or self-care (01) ==
LOC: EDUNIT# 18:54 → EDBD 18:54 → EMR 19:43
DX: G89.29 Other chronic pain (principal); J44.9 Chronic obstructive pulmonary disease, unspecified; I10 Essential (primary) hypertension; Z88.6 Allergy status to analgesic agent
CPT/HCPCS: 96372; 99284; J2270; J7512

== ENCOUNTER 2019-07-31 21:22 | Emergency (ER) | payer MEDICARE ==
[~2019-07-31] VITALS: Ht 165.1 cm; Wt 68.0 kg
[~2019-07-31 21:22] MED LIST changes: +ALBUTEROL2.5 MG/3 M HHN; +AMOXICILLIN500 MG ORAL; +DIFLUCAN100 MG ORAL; +PREDNISONE20 MG ORAL
[2019-07-31 21:40] VITALS: BP 120/82
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
--- NOTE | 2019-07-31 22:18 | NUR ---
ED Nurse Note: ERMD at bedside.
[2019-07-31] MEDS ORDERED: HYDROmorphone 1mg/ml Carpuject IM ONE (22:30)
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
[2019-07-31 23:50] VITALS: BP 122/85
--- NOTE | 2019-07-31 23:50 | NUR ---
ER DISCHARGE NOTE: Patient is cleared to be discharged per ERMD, pt is aox4, on room air, with stable vital signs. pt was given dc instructions, pt was able to verbalize understanding, pt id band removed. pt is able to ambulate with cane. pt took all belongings. pt stable upon discharge.
== END 2019-07-31 23:50 | disposition home or self-care (01) ==
LOC: EDUNIT# 21:23 → EDBD 21:37 → EMR 22:00
DX: M54.6 Pain in thoracic spine (principal); Z88.6 Allergy status to analgesic agent; I10 Essential (primary) hypertension; J44.9 Chronic obstructive pulmonary disease, unspecified
CPT/HCPCS: 96372; 99283; J1170

== ENCOUNTER 2019-11-14 06:23 | Emergency (ER) | payer MEDICARE, OTHER ==
[~2019-11-14] VITALS: Ht 165.1 cm; Wt 65.8 kg
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
[2019-11-14] MEDS ORDERED: Morphine Sulfate 2mg/ml Inj(IV/IM USE ONLY) ONE (06:37)
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
[2019-11-14 06:43] VITALS: BP 141/98
[2019-11-14] MEDS ORDERED: DOXYCYCLINE MO100 MG ORAL (06:43)
[2019-11-14] MEDS ORDERED: AFRIN NASAL SPR30 ML NASAL (06:43)
[2019-11-14] MEDS ORDERED: TYLENOL EXTRA500 MG ORAL (06:43)
[2019-11-14] MEDS ORDERED: Morphine Sulfate 2mg/ml Inj(IV/IM USE ONLY) IM ONE (06:45)
--- NOTE | 2019-11-14 07:03 | NUR ---
HAND-OFF: Report given to FIORDALIZA Glass.
[2019-11-14 07:30] VITALS: BP 144/93
--- NOTE | 2019-11-14 07:30 | NUR ---
ER DISCHARGE NOTE: Patient is cleared to be discharged per ERMD, pt is aox4, on room air, with stable vital signs as documented. pt was given dc and prescription instructions, pt was able to verbalize understanding, pt id band removed. pt is able to ambulate with steady gait. pt took all belongings. Pt being discharged home with Jo
== END 2019-11-14 07:30 | disposition home or self-care (01) ==
LOC: EDBD 06:23 → EMR 06:50
DX: G89.29 Other chronic pain (principal); J32.9 Chronic sinusitis, unspecified; J44.9 Chronic obstructive pulmonary disease, unspecified; I10 Essential (primary) hypertension; Z88.6 Allergy status to analgesic agent; Z98.1 Arthrodesis status
CPT/HCPCS: 96372; 99283; J2270